=== PATIENT | female | born 1950 | race Caucasian/White ===

== ENCOUNTER 2016-06-06 10:41 | Outpatient (CLI) | payer MEDICARE, OTHER | END 2016-06-06 10:42 | disposition home or self-care (01) | DX: I10 Essential (primary) hypertension (principal); C85.90 Non-Hodgkin lymphoma, unspecified, unspecified site; M85.80 Other specified disorders of bone density and structure, unspecified site; Z79.899 Other long term (current) drug therapy ==

== ENCOUNTER 2016-06-22 12:49 | Outpatient (CLI) | payer MEDICARE, OTHER | END 2016-06-22 12:50 | disposition home or self-care (01) | DX: M85.88 Other specified disorders of bone density and structure, other site (principal) ==

== ENCOUNTER 2017-04-16 08:00 | Outpatient (CLI) | payer MEDICARE, OTHER | END 2017-04-16 08:01 | disposition home or self-care (01) | LOC: LAB.R 08:00 | PROVIDERS: ATTEND Physician Assistant Medical | DX: R30.0 Dysuria (principal) | CPT/HCPCS: 87086 ==

== ENCOUNTER 2017-04-16 14:43 | Outpatient (CLI) | payer MEDICARE, OTHER ==
[2017-04-16 18:59] LABS: BASOPHILS % (AUTO) 0.3 %; EOSINOPHILS # (AUTO) 0.4 10^3/uL (0.0-0.7); EOSINOPHILS % (AUTO) 2.5 %; HCT - HEMATOCRIT 40.5 % (37.0-47.0); HGB - HEMOGLOBIN 13.4 g/dL (12.0-16.0); LYMPHOCYTES # (AUTO) 3.6 10^3/uL (1.5-3.5); LYMPHOCYTES % (AUTO) 23.4 %; MEAN CORPUSCULAR HEMOGLOBIN 29.1 pg (27.0-31.0); MEAN PLATELET VOLUME 9.6 fL (7.9-10.8); MONOCYTES # (AUTO) 1.1 10^3/uL (0.0-1.0); MONOCYTES % (AUTO) 7.5 %; NEUTROPHILS # (AUTO) 10.1 10^3/uL (1.5-6.6); NEUTROPHILS % (AUTO) 66.3 %; RED CELL DISTRIBUTION WIDTH 13.8 % (12.0-15.0); UNCORRECTED WHITE BLOOD COUNT 15.2 x10^3/uL; WHITE BLOOD COUNT 15.2 x10^3/uL (4.8-10.8)
[2017-04-16 19:16] LABS: ALBUMIN/GLOBULIN RATIO 1.9 (1.0-2.2); BILIRUBIN,TOTAL 0.9 mg/dL (0.2-1.0); CALCIUM 10.1 mg/dL (8.5-10.3); CREATININE 0.8 mg/dL (0.4-1.0); TOTAL PROTEIN 6.7 g/dL (6.7-8.2)
== END 2017-04-16 14:44 | disposition home or self-care (01) ==
LOC: LAB.WCP 14:43
PROVIDERS: ATTEND Physician Assistant Medical
DX: R30.0 Dysuria (principal); Z51.81 Encounter for therapeutic drug level monitoring; Z79.899 Other long term (current) drug therapy
CPT/HCPCS: 36415; 80053; 85025; 87086

== ENCOUNTER 2017-04-19 11:58 | Outpatient (CLI) | payer MEDICARE, OTHER ==
[2017-04-19 19:05] LABS: BASOPHILS # (AUTO) 0.1 10^3/uL (0.0-0.1); BASOPHILS % (AUTO) 0.9 %; EOSINOPHILS # (AUTO) 0.4 10^3/uL (0.0-0.7); EOSINOPHILS % (AUTO) 5.2 %; HCT - HEMATOCRIT 41.4 % (37.0-47.0); HGB - HEMOGLOBIN 13.6 g/dL (12.0-16.0); LYMPHOCYTES # (AUTO) 1.6 10^3/uL (1.5-3.5); MEAN CORPUSCULAR HGB CONC 32.8 g/dL (32.0-36.0); MEAN CORPUSCULAR VOLUME 88.5 fL (81.0-99.0); MEAN PLATELET VOLUME 9.8 fL (7.9-10.8); MONOCYTES # (AUTO) 0.7 10^3/uL (0.0-1.0); MONOCYTES % (AUTO) 8.4 %; NEUTROPHILS # (AUTO) 5.3 10^3/uL (1.5-6.6); NEUTROPHILS % (AUTO) 65.5 %; NUCLEATED RED BLOOD CELLS AUTO 0.1 /100WBC; RED BLOOD COUNT 4.68 10^6/uL (4.20-5.40); UNCORRECTED WHITE BLOOD COUNT 8.1 x10^3/uL; WHITE BLOOD COUNT 8.1 x10^3/uL (4.8-10.8)
== END 2017-04-19 11:59 | disposition home or self-care (01) ==
LOC: LAB.WCP 11:58
PROVIDERS: ATTEND Physician Assistant Medical
DX: D72.829 Elevated white blood cell count, unspecified (principal)
CPT/HCPCS: 36415; 85025

== ENCOUNTER 2017-12-06 13:16 | Outpatient (CLI) | payer MEDICARE, OTHER ==
--- NOTE | 2017-12-09 15:24 | Mammography Report ---
Procedure Date: 12/06/2017 Accession Number: [id number] / [id number] Procedure: BIANKA - Screening Mammo Dig Bilat CPT Code: FULL RESULT: EXAM: Screening Mammo Dig Bilat DATE: 12/06/2017 1:39 PM CLINICAL HISTORY: 67-year-old with family history of breast cancer for screening, history of benign left excisional biopsy TECHNIQUE: Bilateral CC and MLO views were obtained. COMPARISON: 08/31/2009 FINDINGS: The breasts demonstrate diffuse fatty replacement bilaterally. Punctate, typically benign calcifications are present. No suspicious masses, clustered microcalcifications, or regions of architectural distortion are identified. IMPRESSION: Benign findings RECOMMENDATION: Routine annual screening unless otherwise clinically indicated. BIRADS CATEGORY 2: Benign findings STANDARD QUALIFYING STATEMENTS: 1. This examination was reviewed with the aid of Computer-Aided Detection (CAD). 2. A negative or benign imaging report should not delay biopsy if clinically suspicious findings are present. Consider surgical consultation if warrented. More than 5% of cancers are not identified by imaging. 3. Dense breasts may obscure an underlying neoplasm.
== END 2017-12-06 13:17 | disposition home or self-care (01) ==
LOC: DI 13:16
PROVIDERS: ATTEND Physician Assistant Medical
DX: Z12.31 Encounter for screening mammogram for malignant neoplasm of breast (principal); Z80.3 Family history of malignant neoplasm of breast
CPT/HCPCS: 77067

== ENCOUNTER 2018-02-28 15:39 | Outpatient (CLI) | payer OTHER, MEDICARE | END 2018-02-28 15:40 | disposition critical access hospital (66) | LOC: EMS 15:39 | PROVIDERS: ATTEND Surgery | DX: R07.81 Pleurodynia (principal); M25.562 Pain in left knee; V28.4XXA Motorcycle driver injured in noncollision transport accident in traffic accident, initial encounter; Y92.410 Unspecified street and highway as the place of occurrence of the external cause | CPT/HCPCS: A0425; A0429 ==

== ENCOUNTER 2018-02-28 15:49 | Emergency (ER) | payer OTHER, MEDICARE ==
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
[2018-02-28] MEDS ORDERED: MORPHINE 10 MG/ML VIAL IM STA (18:20)
[2018-02-28] MEDS ORDERED: KETOROLAC 60 MG/2 ML VIAL IM STA (18:20)
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
[2018-02-28] MEDS ORDERED: oxyCODONE 5 MG TABLET PO STA (20:07)
[2018-02-28 20:18] VITALS: BP 149/76
== END 2018-02-28 20:26 | disposition home or self-care (01) ==
LOC: ED 15:49
DX: I10 Essential (primary) hypertension (principal); V29.9XXA Motorcycle rider (driver) (passenger) injured in unspecified traffic accident, initial encounter
CPT/HCPCS: 71101; 71250; 96372; 99283; A9270

== ENCOUNTER 2018-03-22 11:54 | Outpatient (CLI) | payer MEDICARE, OTHER ==
--- NOTE | 2018-03-22 19:33 | Ultrasound Report ---
Reason: ABDOMINAL PAIN,RIGHT UPPER QUADRANT Procedure Date: 03/22/2018 Accession Number: [id number] / [id number] Procedure: US - Abdomen Complete CPT Code: FULL RESULT: EXAM: ABDOMEN ULTRASOUND EXAM DATE: 03/22/2018 12:43 PM. CLINICAL HISTORY: ABDOMINAL PAIN,RIGHT UPPER QUADRANT. COMPARISON: None. TECHNIQUE: Real-time scanning was performed with static images obtained. FINDINGS: Liver: Normal in size , echogenic 16.7 cm. Main portal vein flow: Hepatopetal. Gallbladder: Normal. No stones, wall thickening, or sonographic Cortes's sign. Biliary System: Common bile duct measures 3.2 mm. No intrahepatic or extrahepatic ductal dilatation. Pancreas: Visualized portion is unremarkable. Kidneys: Right: 11.2 cm longitudinally. Normal. No contour-deforming mass, stones, or hydronephrosis. Left: 10.8 cm longitudinally. Normal. No contour-deforming mass, stones, or hydronephrosis. Spleen: 9.5 cm. Normal in size and echotexture. Aorta and Inferior Vena Cava: Unremarkable. Other: None. IMPRESSION: 1. Fatty infiltrated normal sized liver without focal mass. 2. No gallstones RADIA
== END 2018-03-22 11:55 | disposition home or self-care (01) ==
LOC: DI 11:54
PROVIDERS: ATTEND Family Medicine
DX: R10.11 Right upper quadrant pain (principal); K76.0 Fatty (change of) liver, not elsewhere classified
CPT/HCPCS: 76700

== ENCOUNTER 2018-04-08 11:19 | Outpatient (CLI) | payer MEDICARE, OTHER ==
[2018-04-08] MEDS ORDERED: IOPAMIDOL-300 100 ML VIAL ONE (11:27)
[2018-04-08 11:51] LABS: ALBUMIN 4.5 g/dL (3.2-5.5); ALBUMIN/GLOBULIN RATIO 1.8 (1.0-2.2); CALCIUM 9.5 mg/dL (8.5-10.3); CREATININE 0.7 mg/dL (0.4-1.0)
[2018-04-08] MEDS ORDERED: IOPAMIDOL-300 100 ML VIAL IVP ONE (12:38)
--- NOTE | 2018-04-09 12:09 | CT Report ---
Reason: PULMONARY NODULE Procedure Date: 04/08/2018 Accession Number: [id number] / [id number] Procedure: CT - Chest W/ CPT Code: FULL RESULT: EXAM: CT CHEST EXAM DATE: 04/08/2018 12:33 PM. CLINICAL HISTORY: Pulmonary nodule. For follow-up. COMPARISONS: 02/28/2018. TECHNIQUE: Routine helical CT imaging was performed through the chest. IV contrast: 80 mL Isovue 300. Reconstructions: Coronal and sagittal. In accordance with CT protocol optimization, one or more of the following dose reduction techniques were utilized for this exam: automated exposure control, adjustment of mA and/or KV based on patient size, or use of iterative reconstructive technique. FINDINGS: Lungs/Pleura: Semisolid right apical nodule stable measuring 1.4 x 1.4 cm axial by 1.2 cm vertical, series 4:10. Tiny left apical nodule series 4 image 12 measuring 4-5 mm likely stable allowing for slice selection differences. Small amount of nonspecific groundglass density posterior and medial right lung, for example series 4:38. 3 mm peripheral right lung nodule same image probably obscured by hypoventilatory change on the prior study. Subpleural posterior 2 mm right lung nodule 4:32. No other nodules, bronchial thickening, consolidation, or edema. Pulmonary vasculature is normal. No pericardial or pleural effusion. No pneumothorax. Mediastinum: No adenopathy or masses. The heart and great vessels are normal. Bones: Unremarkable. Included Upper Abdomen: Question tiny gallstone. Other: Lipoma left paraspinal muscle 3:58, unchanged. IMPRESSION: Stable chest CT compared with 02/28/2018 with particular reference to a semisolid right apical nodule. Other incidental findings as above. Suggest follow-up chest CT in 12 months to assess stability. RADIA
== END 2018-04-08 11:20 | disposition home or self-care (01) ==
LOC: LAB 11:19 → DI 11:20
PROVIDERS: ATTEND Physician Assistant Medical
DX: J98.4 Other disorders of lung (principal); R91.1 Solitary pulmonary nodule; I10 Essential (primary) hypertension
CPT/HCPCS: 36415; 71260; 80053; Q9967

== ENCOUNTER 2018-06-25 14:18 | Outpatient (CLI) | payer MEDICARE, OTHER ==
--- NOTE | 2018-06-26 09:33 | DEXA Report ---
Reason: BONE DISORDER Procedure Date: 06/25/2018 Accession Number: [id number] / [id number] Procedure: DEX - Dexa Spine and/or Hip CPT Code: FULL RESULT: EXAM: Dexa Spine and/or Hip DATE: 06/25/2018 2:58 PM CLINICAL HISTORY: BONE DISORDER TECHNIQUE: Dual energy x-ray absorptiometry (DXA) was performed on a [employer] System. Regions measured are the AP Spine, femoral neck, and if needed forearm. COMPARISON: 06/22/2016. In accordance with the International Society for Clinical Densitometry (ISCD) guidelines, data from previous exams may be reanalyzed using current recommendations and techniques. This is done to allow a more accurate basis for comparison with the current study. FINDINGS: The data for the lumbar spine is as follows: BMD (g/cm/cm) T-SCORE Z-SCORE REGION L1 1.138 0.1 1.0 L2 1.439 2.0 2.9 L3 1.590 3.3 4.2 L4 1.766 4.7 5.6 TOTAL 1.499 2.7 3.6 NOTE: All evaluable vertebrae are used for classification The data for the hip is as follows: BMD (g/cm/cm) T-SCORE Z-SCORE REGION Neck 0.847 -1.4 -0.2 TOTAL 1.011 0.0 1.0 NOTE: The femoral neck or total proximal femur, whichever is lowest, is used for classification. DXA RESULTS SUMMARY: Spine SCAN DATE AGE BMD CHANGE VS CHANGE VS PREVIOUS PREVIOUS % [birth year]25[birth year]2018 [age] 1.499 0.030* 2.0* 06/22/2016 [age] 1.469 * Denotes significant change at the 95% confidence level. Denotes dissimilar scan types or analysis methods. DXA RESULTS SUMMARY: Hip SCAN DATE AGE BMD CHANGE VS CHANGE VS PREVIOUS PREVIOUS % [birth year]2018 68.2 1.011 0.040* 4.1* 06[birth year]22/2016 66.2 0.971 * Denotes significant change at the 95% confidence level. Denotes dissimilar scan types or analysis methods. IMPRESSION: THE WHO CLASSIFICATION BASED ON THE INTERNATIONAL REFERENCE STANDARD IS OSTEOPENIA. THE FRACTURE RISK IS INCREASED. Please note that the osteopenia is isolated to the femoral neck. RECOMMENDATION: Patients with diagnosis of osteoporosis or osteopenia should have regular bone mineral density assessment. For those eligible for Medicare, routine testing is allowed once every 2 years. Testing frequency can be increased for patients who have rapidly progressing disease or for those who are receiving medical therapy to restore bone mass. COMMENT: World Health Organization (WHO) definitions for osteoporosis and osteopenia: NORMAL BMD: T-score at -1.0 or higher, fracture risk is low OSTEOPENIA BMD: T-score between -1.0 and -2.5, fracture risk is increased. OSTEOPOROSIS BMD: T-score at -2.5 or lower, fracture risk is high. National Osteoporosis Foundation recommends: 1. Obtain adequate dietary calcium (at least 1200 mg per day) and vitamin D (400-800 international units per day). 2. Participate, as appropriate, in regular weightbearing and muscle-strengthening exercise. 3. Avoid tobacco use and reduce alcohol and caffeine intake. 4. For more detailed information see the website at www.NOF.org.
== END 2018-06-25 14:19 | disposition home or self-care (01) ==
LOC: DI 14:18
PROVIDERS: ATTEND Physician Assistant Medical
DX: M85.89 Other specified disorders of bone density and structure, multiple sites (principal)
CPT/HCPCS: 77080

== ENCOUNTER 2018-11-03 18:45 | Emergency (ER) | payer MEDICARE, OTHER ==
--- NOTE | 2018-11-03 19:02 | ED Physician Documentation ---
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 He called her this afternoon and said that her potassium was too high and she needed to come to the emergency department. She has not had any symptoms other than a couple of days ago when she had walked across the hospital she was staggering. Her said this was the first that he had heard of that. She did not pass out. She has a history of A. fib but has not been feeling any palpitations. No history of kidney failure and no edema. She has been anemic in the past requiring transfusion. Review of Systems Cardiac: denies: Palpitations : reports: Other (No history of renal failure) Neurologic: reports: Other (Unsteadiness a couple days ago). 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 Cardiovascular: Other - Present Medications Home Medications: Ambulatory Orders Medication Instructions Recorded Confirmed Albuterol Sulfate [Proair 2 puffs INH Q4H PRN 12/12/15 01/30/16 Respiclick] Sertraline [Zoloft] 100 mg PO DAILY 12/12/15 01/30/16 Calcium Carbonate 600 mg PO BID 01/30/16 01/30/16 Cholecalciferol (Vitamin D3) 3,000 unit PO DAILY 01/30/16 01/30/16 [Vitamin D3] [place]-3/Dha/Epa/Fish Oil [[place]-3 1,000 mg PO DAILY 01/30/16 01/30/16 Fish Oil EC 1,000 mg] Atorvastatin [Lipitor] 20 mg PO QPM tablet 02/01/16 ALPRAZolam [Alprazolam] 0.25 mg PO 11/03/18 Aspirin 81 mg PO 11/03/18 Diltiazem HCl [Diltiazem 12Hr ER] 120 mg PO 11/03/18 Tolterodine Tartrate [Detrol LA] 4 mg PO 11/03/18 - Allergies Allergies/Adverse Reactions: Allergies Allergy/AdvReac Type Severity Reaction Status Date / Time adhesive tape Allergy Rash Verified 11/03/18 18:50 erythromycin base Allergy Unknown Verified 11/03/18 18:50 naproxen AdvReac Intermediate Rash Verified 11/03/18 18:50 Penicillins AdvReac Intermediate Rash Verified 11/03/18 18:50 metoclopramide HCl * AdvReac Unknown Verified 11/03/18 18:50 [From Reglan] - Social History Does the pt smoke?: No Smoking Status: Never smoker Does the pt drink ETOH?: No Does the pt have substance abuse?: No - Immunizations Immunizations are current?: Yes - POLST Patient has POLST: No PD ED PE NORMAL - Vitals Vital signs reviewed: Yes - General General: Alert and oriented X 3, No acute distress, Well developed/nourished - HEENT HEENT: Atraumatic, PERRL, EOMI, Moist mucous membranes - Cardiac Cardiac: RRR, No murmur - Respiratory Respiratory: No respiratory distress, Clear bilaterally - Abdomen Abdomen: Normal bowel sounds, Soft, No organomegaly - Derm Derm: Normal color, Warm and dry - Neuro Neuro: Alert and oriented X 3, Normal speech, Other (Patient was observed ambulating into the room without any ataxia or unsteadiness.) - Psych Psych: Normal mood, Normal affect Results - Vitals Vitals: Vital Signs - 24 hr 11/03/18 18:53 Temperature 36.8 C Heart Rate 62 Respiratory 18 Rate Blood Pressure 143/60 H O2 Saturation 95 Oxygen O2 Source Room air - Labs Labs: Laboratory Tests 11/03/18 11/03/18 19:08 19:08 WBC 9.4 RBC 4.57 Hgb 13.5 Hct 40.6 MCV 88.9 MCH 29.6 MCHC 33.3 RDW 13.3 Plt Count 290 MPV 9.5 Neut # (Auto) 6.3 Lymph # (Auto) 2.1 [place] # (Auto) 0.7 Eos # (Auto) 0.3 Baso # (Auto) 0.1 Absolute Nucleated RBC 0.01 Nucleated RBC % 0.1 Sodium 143 Potassium 3.9 Chloride 105 Carbon Dioxide 27 Anion Gap 11.0 BUN 21 H Creatinine 0.8 Estimated GFR (MDRD) 71 L Glucose 96 Calcium 9.7 Total Bilirubin 1.0 AST 17 ALT 14 Alkaline Phosphatase 74 Total Protein 6.7 Albumin 4.4 Globulin 2.3 Albumin/Globulin Ratio 1.9 Lipase 34 PD MEDICAL DECISION MAKING - ED course Complexity details: d/w patient ED course: Patient's repeat potassium here was 3.9 with normal renal function. Her potassium today may have been elevated due to hemolysis. She is not anemic with a hemoglobin of 13.2. Departure - Departure Disposition: 01 Home, Self Care Clinical Impression: Abnormal laboratory test result Condition: Good Follow-Up: VERONICA SMITH [Primary Care Provider] - doctor,your [Other] (You should contact Dr. Hoover's office tomorrow to tell them the potassium result we got here in the emergency department.) Comments: Contact Dr. Hoover tomorrow about your repeat labs here in the ER.
[2018-11-03 19:12] LABS: BASOPHILS # (AUTO) 0.1 10^3/uL (0.0-0.1); BASOPHILS % (AUTO) 0.7 %; EOSINOPHILS # (AUTO) 0.3 10^3/uL (0.0-0.7); EOSINOPHILS % (AUTO) 3.1 %; HGB - HEMOGLOBIN 13.5 g/dL (12.0-16.0); LYMPHOCYTES # (AUTO) 2.1 10^3/uL (1.5-3.5); MEAN CORPUSCULAR HEMOGLOBIN 29.6 pg (27.0-31.0); MEAN CORPUSCULAR HGB CONC 33.3 g/dL (32.0-36.0); MEAN CORPUSCULAR VOLUME 88.9 fL (81.0-99.0); MEAN PLATELET VOLUME 9.5 fL (7.9-10.8); MONOCYTES # (AUTO) 0.7 10^3/uL (0.0-1.0); NEUTROPHILS # (AUTO) 6.3 10^3/uL (1.5-6.6); NEUTROPHILS % (AUTO) 67.2 %; PLT - PLATELET COUNT 290 10^3/uL (130-450); RED BLOOD COUNT 4.57 10^6/uL (4.20-5.40); RED CELL DISTRIBUTION WIDTH 13.3 % (12.0-15.0); WHITE BLOOD COUNT 9.4 x10^3/uL (4.8-10.8)
[2018-11-03 19:24] LABS: ALBUMIN 4.4 g/dL (3.2-5.5); ALBUMIN/GLOBULIN RATIO 1.9 (1.0-2.2); CALCIUM 9.7 mg/dL (8.5-10.3); CREATININE 0.8 mg/dL (0.4-1.0); TOTAL PROTEIN 6.7 g/dL (6.7-8.2)
[2018-11-03 19:57] VITALS: BP 146/67
== END 2018-11-03 20:16 | disposition home or self-care (01) ==
LOC: ED 18:45
DX: R79.9 Abnormal finding of blood chemistry, unspecified (principal); C85.90 Non-Hodgkin lymphoma, unspecified, unspecified site; Z79.899 Other long term (current) drug therapy; I10 Essential (primary) hypertension
CPT/HCPCS: 36415; 80053; 83690; 85025; 93005; 99283

== ENCOUNTER 2019-03-12 08:00 | Outpatient (CLI) | payer MEDICARE, OTHER ==
[2019-03-12 19:08] LABS: BASOPHILS # (AUTO) 0.1 10^3/uL (0.0-0.1); BASOPHILS % (AUTO) 0.8 %; EOSINOPHILS # (AUTO) 0.3 10^3/uL (0.0-0.7); EOSINOPHILS % (AUTO) 4.5 %; HGB - HEMOGLOBIN 14.1 g/dL (12.0-16.0); LYMPHOCYTES # (AUTO) 0.9 10^3/uL (1.5-3.5); LYMPHOCYTES % (AUTO) 11.8 %; MEAN CORPUSCULAR HEMOGLOBIN 30.3 pg (27.0-31.0); MEAN CORPUSCULAR HGB CONC 31.8 g/dL (32.0-36.0); MEAN CORPUSCULAR VOLUME 95.3 fL (81.0-99.0); MEAN PLATELET VOLUME 11.9 fL (7.9-10.8); MONOCYTES # (AUTO) 0.6 10^3/uL (0.0-1.0); MONOCYTES % (AUTO) 8.8 %; NEUTROPHILS # (AUTO) 5.4 10^3/uL (1.5-6.6); NEUTROPHILS % (AUTO) 73.8 %; PLT - PLATELET COUNT 304 10^3/uL (130-450); RED BLOOD COUNT 4.66 10^6/uL (4.20-5.40); RED CELL DISTRIBUTION WIDTH 12.8 % (12.0-15.0); WHITE BLOOD COUNT 7.3 x10^3/uL (4.8-10.8)
[2019-03-12 19:33] LABS: ALBUMIN 4.6 g/dL (3.2-5.5); ALBUMIN/GLOBULIN RATIO 2.2 (1.0-2.2); ALKALINE PHOSPHATASE 79 IU/L (42-121); ALT ALANINE AMINOTRANSFERASE 14 IU/L (10-60); AST ASPARTATE AMINOTRANSFERASE 18 IU/L (10-42); BILIRUBIN,TOTAL 1.5 mg/dL (0.2-1.0); BUN - BLOOD UREA NITROGEN 17 mg/dL (6-20); CALCIUM 9.4 mg/dL (8.5-10.3); CARBON DIOXIDE - CO2 32 mmol/L (21-32); CHLORIDE 103 mmol/L (101-111); CHOL/HDL RATIO 2.3 (<4.4); CHOLESTEROL 160 mg/dL; CREATININE 0.7 mg/dL (0.4-1.0); GFR - MDRD 83 (>89); GLUCOSE 93 mg/dL (70-100); HDL CHOLESTEROL 71 mg/dL; LDL CHOLESTEROL,CALCULATED 68 mg/dL; SODIUM 144 mmol/L (135-145); TOTAL PROTEIN 6.7 g/dL (6.7-8.2); VLDL CHOLESTEROL 21 mg/dL
== END 2019-03-12 23:59 ==
LOC: LAB.WCP 08:00
PROVIDERS: ATTEND Physician Assistant Medical
DX: I10 Essential (primary) hypertension (principal)
CPT/HCPCS: 36415; 80053; 80061; 83721; 85025

== ENCOUNTER 2019-03-25 13:01 | Outpatient (CLI) | payer MEDICARE, OTHER ==
--- NOTE | 2019-03-25 18:14 | CT Report ---
Reason: PULMONARY NODULE Procedure Date: 03/25/2019 Accession Number: [id number] / [id number] Procedure: CT - CHEST WO CPT Code: FULL RESULT: EXAM: CT CHEST EXAM DATE: 03/25/2019 01:28 PM. CLINICAL HISTORY: PULMONARY NODULE follow-up. COMPARISONS: CHEST W/ 04/08/2018 12:25 PM CHEST W/O 02/28/2018 6:50 PM. TECHNIQUE: Routine helical CT imaging was performed through the chest. IV contrast: None. Reconstructions: Coronal and sagittal. In accordance with CT protocol optimization, one or more of the following dose reduction techniques were utilized for this exam: automated exposure control, adjustment of mA and/or KV based on patient size, or use of iterative reconstructive technique. FINDINGS: Lungs/Pleura: Semisolid right apical nodule maximum dimension 1.5 cm unchanged since 04/08/2018. 4-5 mm left apical groundglass nodule also stable. Few scattered groundglass opacities bilaterally, most marked posterior medial right lung, i.e. 4/124 and 4/176 also grossly stable. Peripheral right lung calcified granuloma 4/165 unchanged. No significant new nodules seen. No pleural effusion or pneumothorax. Mediastinum: No pathologic mediastinal adenopathy. Small nonspecific mediastinal lymph nodes are stable. Calcification in the aorta and branch great vessels. Coronary artery calcification. Bones: Multiple old left rib fractures and scattered degenerative changes in the spine as before. Other: Left paraspinal lipoma stable IMPRESSION: Stable chest CT compared with 04/08/2018 with particular reference to a right apical semisolid nodule. Other incidental findings as above. Suggest one additional follow-up chest CT in 12 months. RADIA
--- NOTE | 2019-03-26 04:46 | MRI Report ---
Reason: DYSPHAGIA, PULMONARY NODULE Procedure Date: 03/25/2019 Accession Number: [id number] / [id number] Procedure: MRI - Brain W/O CPT Code: FULL RESULT: EXAM: MRI BRAIN WITHOUT CONTRAST EXAM DATE: 03/25/2019 02:57 PM CLINICAL HISTORY: Dysphagia, pulmonary nodule. History of lymphoma. COMPARISON: BRAIN W/WO 01/20/2015 4:02 PM. TECHNIQUE: Multiplanar, multisequence T1-weighted and fluid-sensitive MR sequences of the brain were performed. Sequences optimized for routine evaluation. Other: None. IV Contrast: None. FINDINGS: An axial T2 ANALILIA sequence was not acquired. Brain Volume: There is mild generalized cerebral volume loss, in keeping with the patient's age. Parenchyma/Dura: No mass, acute infarct or hemorrhage. Moderate scattered areas of T2 hyperintensity are again seen in the subcortical, deep, and periventricular white matter of the bilateral cerebral hemispheres, stable compared to the prior brain MRI and typically reflect chronic microvascular ischemic changes in a patient of this age. Ventricles/Cisterns: No hydrocephalus. No abnormal extra-axial fluid collection or hemorrhage. Orbits: Symmetric and unremarkable. Sella Turcica: The pituitary gland, cavernous sinuses, suprasellar cistern and optic chiasm are unremarkable. IAC: Symmetric and unremarkable. Vasculature: Normal signal flow void is seen in the major arterial structures at the skull base. Sinuses: No acute appearing sinus disease. Bones: No focal pathologic appearing marrow signal changes. IMPRESSION: 1. No acute infarct, intracranial mass lesion, or hemorrhage. 2. Stable mild to moderate senescent changes compared to the brain MRI from 01/20/2015. RADIA
== END 2019-03-25 13:02 | disposition home or self-care (01) ==
LOC: DI 13:01
PROVIDERS: ATTEND Physician Assistant Medical
DX: R13.10 Dysphagia, unspecified (principal); R91.8 Other nonspecific abnormal finding of lung field
CPT/HCPCS: 70551; 71250

== ENCOUNTER 2019-12-01 08:00 | Outpatient (CLI) | payer MEDICARE, OTHER ==
[2019-12-01 18:33] LABS: CHOLESTEROL 187 mg/dL; HDL CHOLESTEROL 94 mg/dL; LDL CHOLESTEROL,CALCULATED 69 mg/dL; LDL/HDL RATIO 0.7 (<4.4); VLDL CHOLESTEROL 24 mg/dL
== END 2019-12-01 23:59 | disposition home or self-care (01) ==
LOC: LAB.WCP 08:00
PROVIDERS: ATTEND Nurse Practitioner
DX: I65.23 Occlusion and stenosis of bilateral carotid arteries (principal)
CPT/HCPCS: 36415; 80061; 83721

== ENCOUNTER 2020-08-18 11:38 | Emergency (ER) | payer MEDICARE, OTHER ==
[2020-08-18 11:49] VITALS: BP 155/85
--- NOTE | 2020-08-18 11:50 | ED Physician Documentation ---
PD HPI OPHTHO - Stated complaint Stated Complaint: RT EYE PX - History obtained from History obtained from: Patient - Additional information Additional information: She noted a bloody area in the white of her eye just prior to arrival. It is relatively painless. Vision is not affected. She has no bleeding diathesis or anticoagulation other than she does take a baby aspirin a day. Review of Systems Constitutional: denies: Fever, Chills Eyes: reports: Irritation. 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 Cardiovascular: Other - Present Medications Home Medications: Ambulatory Orders Medication Instructions Recorded Confirmed Albuterol Sulfate [Proair 2 puffs INH Q4H PRN 12/12/15 01/30/16 Respiclick] Sertraline [Zoloft] 100 mg PO DAILY 12/12/15 01/30/16 Calcium Carbonate 600 mg PO BID 01/30/16 01/30/16 Cholecalciferol (Vitamin D3) 3,000 unit PO DAILY 01/30/16 01/30/16 [Vitamin D3] Rosamond-3/Dha/Epa/Fish Oil [Rosamond-3 1,000 mg PO DAILY 01/30/16 01/30/16 Fish Oil EC 1,000 mg] Atorvastatin [Lipitor] 20 mg PO QPM tablet 02/01/16 ALPRAZolam [Alprazolam] 0.25 mg PO 11/03/18 Aspirin 81 mg PO 11/03/18 Diltiazem HCl [Diltiazem 12Hr ER] 120 mg PO 11/03/18 Tolterodine Tartrate [Detrol LA] 4 mg PO 11/03/18 - Allergies Allergies/Adverse Reactions: Allergies Allergy/AdvReac Type Severity Reaction Status Date / Time adhesive tape Allergy Rash Verified 08/18/20 11:50 erythromycin base Allergy Unknown Verified 08/18/20 11:50 naproxen AdvReac Intermediate Rash Verified 08/18/20 11:50 Penicillins AdvReac Intermediate Rash Verified 08/18/20 11:50 metoclopramide HCl * AdvReac Unknown Verified 08/18/20 11:50 [From Reglan] - Social History Does the pt smoke?: No Smoking Status: Never smoker Does the pt drink ETOH?: No Does the pt have substance abuse?: No - Immunizations Immunizations are current?: Yes - POLST Patient has POLST: No PD ED PE NORMAL - Vitals Vital signs reviewed: Yes - General General: Alert and oriented X 3, No acute distress - HEENT HEENT: PERRL, EOMI, Other (Medial subconjunctival hematoma of the right eye.) - Neck Neck: Supple, no meningeal sign, No bony TTP - Neuro Neuro: Alert and oriented X 3, Normal speech Results - Vitals Vitals: Vital Signs - 24 hr 08/18/20 11:47 Temperature 36 C L Heart Rate 65 Respiratory 18 Rate Blood Pressure 155/85 H O2 Saturation 96 Oxygen O2 Source Room air Departure - Departure Disposition: 01 Home, Self Care Clinical Impression: Subconjunctival hemorrhage of right eye Condition: Good Record reviewed to determine appropriate education?: Yes Instructions: Subconjunctival Hemorrhage Comments: Return for new or worsening symptoms. Otherwise you can follow-up with your eye doctor for a second opinion. If desired.
== END 2020-08-18 12:03 | disposition home or self-care (01) ==
LOC: ED 11:38
DX: H11.31 Conjunctival hemorrhage, right eye (principal); I10 Essential (primary) hypertension
CPT/HCPCS: 99281; 99283

== ENCOUNTER 2020-11-01 14:34 | Outpatient (CLI) | payer MEDICARE, OTHER ==
[2020-11-01 18:10] LABS: BASOPHILS # (AUTO) 0.1 10^3/uL (0.0-0.1); EOSINOPHILS # (AUTO) 0.3 10^3/uL (0.0-0.7); EOSINOPHILS % (AUTO) 3.8 %; HCT - HEMATOCRIT 43.4 % (37.0-47.0); HGB - HEMOGLOBIN 14.2 g/dL (12.0-16.0); LYMPHOCYTES % (AUTO) 27.1 %; MEAN CORPUSCULAR HEMOGLOBIN 30.7 pg (27.0-31.0); MEAN CORPUSCULAR HGB CONC 32.7 g/dL (32.0-36.0); MEAN CORPUSCULAR VOLUME 93.7 fL (81.0-99.0); MEAN PLATELET VOLUME 11.5 fL (7.9-10.8); MONOCYTES # (AUTO) 0.7 10^3/uL (0.0-1.0); MONOCYTES % (AUTO) 9.4 %; NEUTROPHILS # (AUTO) 4.3 10^3/uL (1.5-6.6); NEUTROPHILS % (AUTO) 58.4 %; PLT - PLATELET COUNT 368 10^3/uL (130-450); RED BLOOD COUNT 4.63 10^6/uL (4.20-5.40); WHITE BLOOD COUNT 7.4 x10^3/uL (4.8-10.8)
[2020-11-01 18:59] LABS: ALBUMIN 4.7 g/dL (3.2-5.5); ALBUMIN/GLOBULIN RATIO 2.2 (1.0-2.2); ALKALINE PHOSPHATASE 66 IU/L (42-121); ALT ALANINE AMINOTRANSFERASE 14 IU/L (10-60); AST ASPARTATE AMINOTRANSFERASE 17 IU/L (10-42); BUN - BLOOD UREA NITROGEN 15 mg/dL (6-20); CALCIUM 9.5 mg/dL (8.5-10.3); CARBON DIOXIDE - CO2 31 mmol/L (21-32); CHLORIDE 102 mmol/L (101-111); CHOL/HDL RATIO 2.3 (<4.4); CHOLESTEROL 192 mg/dL; CREATININE 0.8 mg/dL (0.4-1.0); GFR - MDRD 71 (>89); GLUCOSE 92 mg/dL (70-100); HDL CHOLESTEROL 83 mg/dL; LDL CHOLESTEROL,CALCULATED 81 mg/dL; POTASSIUM 4.1 mmol/L (3.5-5.0); SODIUM 139 mmol/L (135-145); TOTAL PROTEIN 6.8 g/dL (6.7-8.2); TRIGLYCERIDES 139 mg/dL; VLDL CHOLESTEROL 28 mg/dL
== END 2020-11-01 23:59 | disposition home or self-care (01) ==
LOC: LAB.WCP 14:34
PROVIDERS: ATTEND Physician Assistant Medical
DX: I10 Essential (primary) hypertension (principal)
CPT/HCPCS: 36415; 80053; 80061; 83721; 85025

== ENCOUNTER 2020-12-13 12:57 | Outpatient (CLI) | payer MEDICARE, OTHER ==
--- NOTE | 2020-12-14 11:57 | Mammography Report ---
BILATERAL DIGITAL SCREENING MAMMOGRAM 3D/2D: 12/13/2020 CLINICAL: Routine screening. Comparison is made to exams dated: 12/06/2017 mammogram and 08/31/2009 mammogram - [facility]. The tissue of both breasts is predominantly fatty. No significant masses, calcifications, or other findings are seen in either breast. There has been no significant interval change. IMPRESSION: NEGATIVE There is no mammographic evidence of malignancy. A 1 year screening mammogram is recommended. This exam was interpreted at Station ID: [id number]. NOTE: For mammograms, a report in lay terms will be sent to the patient. Approximately 15% of breast malignancies will not be visualized mammographically. In the management of a palpable breast mass, a negative mammogram must not discourage biopsy of a clinically suspicious lesion. Electronically Signed By: John Shearer M.D. [email or web address]:12/13/2020 15:03:03 ACR BI-RADS Category 1: Negative 3341F PARENCHYMAL PATTERN: (F) - The breast(s) demonstrate(s) diffuse fatty replacement. BI-RADS CATEGORY: (1) - 1 RECOMMENDATION: (ANNUAL) - Recommend routine annual screening mammography. [id number] 1 year screening LATERALITY: (B)
== END 2020-12-13 12:58 | disposition home or self-care (01) ==
LOC: DI 12:57
DX: Z12.31 Encounter for screening mammogram for malignant neoplasm of breast (principal)

== ENCOUNTER 2020-12-13 12:58 | Outpatient (CLI) | payer MEDICARE, OTHER ==
--- NOTE | 2020-12-13 18:34 | CT Report ---
PROCEDURE: CHEST WO INDICATIONS: PULMONARY NODULE TECHNIQUE: Noncontrast images were acquired from the pulmonary apices to the posterior costophrenic angles. Mul tiplanar MIP reformats were then acquired. For radiation dose reduction, the following was used: au tomated exposure control, adjustment of mA and/or kV according to patient size. COMPARISON: Chest CT without contrast, 03/25/2019. Chest CT with contrast, 04/08/2018. FINDINGS: Image quality: Excellent. Lungs and pleura: There is a 1.4 x 1.6 cm groundglass nodule in the posterior right apex, unchanged in size compared to 04/08/2018. A 0.9 cm groundglass nodule is seen in the posterior left upper lobe, also unchanged in size but increased in density and more conspicuous. No acute air space opacities. No pleural effusions or pneumothorax. Central and peripheral airways are patent and normal in calib er. Mediastinum: Heart size is normal. There is severe coronary artery calcification. No pericardial ef fusion. No mediastinal adenopathy by size criteria. Thoracic aorta and central pulmonary arteries a re normal in size. Esophagus is normal in caliber. No hiatal hernia. Bones and chest wall: No suspicious bony lesions. No vertebral body compression fractures. No axil leonor or supraclavicular adenopathy by size criteria. The thyroid is normal in size and there are no incidental findings. There is a 2.0 x 3.0 cm lipoma in the left paraspinous muscle at the level of T1 1, unchanged. Abdomen: There is a 2.1 cm low-density nodule in spleen, which has increased in size (previously 0.9 cm on 03/25/2019). IMPRESSION: 1. Stable groundglass nodule in the right upper lobe since 04/10/2018. 2. A 0.9 cm nodule in the left upper lobe. Although 8 appears unchanged in size, it has increased in density. Continued follow-up is recommended. A follow-up CT is suggested in 12months. 3. A 2.1 cm low dense nodule in spleen. This nodule has increased in size since last exam. An abdomin al ultrasound is suggested as the initial follow-up exam. 4. Severe coronary artery calcification. 5. Stable 2 x 3 cm lipoma in the left paraspinous muscle. Fleischner Society criteria for SUB-SOLID lung nodule followup. Solitary pure ground-glass nodules 5 mm or less No followup needed. >5 mm 3 mo follow-up CT to confirm persistence. Then annual CT for 3 years. Part-solid nodules 3 mo follow-up CT to confirm persistence. If persistent with solid component <5 mm, annual CT for at least 3 years. If solid component is 5 mm or more, biopsy or surgical resection . Consider PET-CT for lesions > 10 mm. Multiple sub-solid nodules Pure ground glass nodules 5 mm or less Followup CT at 2 and 4 years. Pure ground glass nodules >5 mm without dominant lesion. [address] to confirm persistenc e, then annual followup CT for at least 3 years. Dominant nodule(s) with part-solid or solid component. [address] to confirm persistence. If persistent, consider biopsy or surgical resection, juice if lesions have >5 mm solid component. Reviewed by: Nayeli Dent MD on 12/13/2020 6:33 PM PDT Approved by: Nayeli Dent MD on 12/13/2020 6:33 PM PDT Station ID: [id number]
--- NOTE | 2020-12-14 10:59 | Ultrasound Report ---
PROCEDURE: Head or Neck Soft Tissue INDICATIONS: ENLARGED THYROID TECHNIQUE: Real-time scanning was performed of the thyroid gland, with image documentation. COMPARISON: 06/20/2007, CT of neck soft tissue dated 10/31/2007, and MR neck angiogram dated 01/30/2015 . FINDINGS: Right: Thyroid lobe measures 4.2 x 1.5 x 2 cm, and is homogeneous in echotexture. Left: Thyroid lobe measures 4.3 x 1.7 x 1.8 cm, and is homogenous in echotexture. Isthmus: 2.5 mm thick. Nodule number: One Location: Mid pole of right thyroid lobe Size: 1.2 x 1 x 1.2 cm on the current study compared to 9 x 9 x 9 MM on previous study. Composition: Solid Echogenicity: Hypoechoic Shape: wider than tall. Margins: Irregular and lobulated Echogenic foci: None Total points: 6 ACR TI-RADS category: 4, moderately suspicious. Nodule number: Two Location: Lower pole of left thyroid lobe Size: 0.4 cm. Composition: Spongiform Echogenicity: Hypoechoic Shape: wider than tall. Margins: Smooth Echogenic foci: None Total points: 3 ACR TI-RADS category: 3, Mildly suspicious. IMPRESSION: 1. Interval slight increase in size of patient's known right mid thyroid nodule which is moderately s uspicious. Currently measures up to 1.2 cm in size. Continued annual sonographic follow-up is recomme nded. 2. Interval development of a tiny mildly suspicious left thyroid nodule as above, suggest ultrasound follow-up. ACR TI-RADS definitions and recommendations: TI-RADS 1 (benign): 0 points. FNA not needed. TI-RADS 2 (not suspicious): 2 points. FNA not needed. TI-RADS 3 (mildly suspicious): 3 points. ? FNA if 2.5 cm or larger, follow up if 1.5 cm or larger (at 1, 3, and 5 years). TI-RADS 4 (moderately suspicious): 4-6 points. ? FNA if 1.5 cm or larger, follow up if 1 cm or larger (at 1, 2, 3, and 5 years). TI-RADS 5 (highly suspicious): 7 points or more. ? FNA if 1 cm or larger, follow up if 0.5 cm or larger (every year for 5 years). Reviewed by: Felix Riley MD on 12/14/2020 10:58 AM PDT Approved by: Felix Riley MD on 12/14/2020 10:58 AM PDT Station ID: [id number]
== END 2020-12-13 12:59 | disposition home or self-care (01) ==
LOC: DI 12:58
PROVIDERS: ATTEND Physician Assistant Medical
DX: J98.4 Other disorders of lung (principal); R91.8 Other nonspecific abnormal finding of lung field; D73.89 Other diseases of spleen; E04.1 Nontoxic single thyroid nodule; D17.9 Benign lipomatous neoplasm, unspecified

== ENCOUNTER 2022-06-09 14:57 | Emergency (ER) | payer MEDICARE, OTHER ==
[2022-06-09 15:05] VITALS: BP 147/74
--- NOTE | 2022-06-09 15:09 | ED Physician Documentation ---
PD HPI HEAD INJURY - Stated complaint Stated Complaint: FALL,HEAD INJ - Chief complaint Chief Complaint: Trauma Hd/Nk - History obtained from History obtained from: Patient - History of Present Illness Mechanism of head injury: Blow (The patient states she stood up to 6 start walking forward and inadvertently struck her head on the corner of a piece of metal. She states it was a forceful impact. She received a laceration that bled briskly. [place] to nausea and slightly lightheaded.) Timing - onset: Today Location of injury: Right Associated symptoms: AMS (lightheaded), Nausea / vomiting. No: LOC, Neck pain, Paresthesias Contributing factors: No: Anticoagulated Similar symptoms before: Has not had sx before Review of Systems Eyes: denies: Loss of vision, Decreased vision GI: reports: Nausea. denies: Vomiting Skin: reports: Laceration (s) Neurologic: reports: Headache. 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 Cardiovascular: Other - Present Medications Home Medications: Ambulatory Orders Medication Instructions Recorded Confirmed Albuterol Sulfate [Proair 2 puffs INH Q4H PRN 12/12/15 01/30/16 Respiclick] Sertraline [Zoloft] 100 mg PO DAILY 12/12/15 01/30/16 Calcium Carbonate 600 mg PO BID 01/30/16 01/30/16 Cholecalciferol (Vitamin D3) 3,000 unit PO DAILY 01/30/16 01/30/16 [Vitamin D3] [place]illion-3/Dha/Epa/Fish Oil [[place]illion-3 1,000 mg PO DAILY 01/30/16 01/30/16 Fish Oil EC 1,000 mg] Atorvastatin [Lipitor] 20 mg PO QPM tablet 02/01/16 ALPRAZolam [Alprazolam] 0.25 mg PO 11/03/18 Aspirin 81 mg PO 11/03/18 Diltiazem HCl [Diltiazem 12Hr ER] 120 mg PO 11/03/18 Tolterodine Tartrate [Detrol LA] 4 mg PO 11/03/18 - Allergies Allergies/Adverse Reactions: Allergies Allergy/AdvReac Type Severity Reaction Status Date / Time adhesive tape Allergy Rash Verified 08/18/20 11:50 erythromycin base Allergy Unknown Verified 08/18/20 11:50 naproxen AdvReac Intermediate Rash Verified 08/18/20 11:50 Penicillins AdvReac Intermediate Rash Verified 08/18/20 11:50 metoclopramide HCl * AdvReac Unknown Verified 08/18/20 11:50 [From Reglan] - Social History Does the pt smoke?: No Smoking Status: Never smoker Does the pt drink ETOH?: No Does the pt have substance abuse?: No - Immunizations Immunizations are current?: Yes - POLST Patient has POLST: No PD ED PE NORMAL - Vitals Vital signs reviewed: Yes - General General: Alert and oriented X 3, No acute distress, Well developed/nourished - HEENT HEENT: PERRL, EOMI, Other (Right parietal scalp with 3 cm laceration through to the fatty tissue with mild bleeding until cleansed and then brisker bleeding that is controlled with fingertip pressure.) - Neck Neck: Supple, no meningeal sign, No bony TTP - Derm Derm: Normal color, Warm and dry - Neuro Neuro: Alert and oriented X 3, 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 When cleansed, there did start small vascular spurting of blood, controlled with fingertip pressure on spot until sutures placed.), Clean Anesthesia: Lidocaine 1% with epi Wound preparation: Irrigated copiously NS, Wound explored, To the base Skin layer closure: Nylon, Running, Size #-0 - enter number (4), Sutures - enter # (7) Other: Patient tolerated well, No complications, Neurovascular intact, Tetanus UTD PD Medical Decision Making - ED course Complexity details: reviewed results, considered differential, d/w patient ED course: The patient was having some headache and nausea and feeling a bit lightheaded. This was after a striking her head. It was not a high force injury but she still has some mild concussive symptoms. She is not on blood thinners but still concerning for acute injury. CT head was done after discussion with the patient to evaluate for acute bleeding or injury. The CT did not show any signs of acute bleeding or swelling. Departure - Departure Disposition: 01 Home, Self Care Clinical Impression: Scalp laceration, Nausea Condition: Stable Record reviewed to determine appropriate education?: Yes Instructions: ED Laceration Scalp Stitch Or Stap Follow-Up: Anusha Gunderson PA-C [Primary Care Provider] - Comments: It is okay to wash and shower. Clean off the wound twice a day with soap and water, or peroxide and water. Apply some antibiotic ointment to it to keep it moist. Also to watch for signs of infection such as purulence, redness or increasing pain. Return to your primary care or the ER at the specified time for suture removal. Suture removal 10 to 12 days. Tylenol every 4-6 hours if needed for pains. Ice or cool towels to the area this evening may help with some of the swelling and discomfort. Your CT scan did not show any signs of internal/brain bleeding or swelling. You may experience some nausea, lightheadedness, blurred vision related to the head injury for a day or 2. Follow-up if lasts more than that.
[2022-06-09] MEDS ORDERED: ACETAMINOPHEN 500 MG TABLET PO STA (15:34)
[2022-06-09] MEDS ORDERED: ONDANSETRON ODT 4 MG TABLET TL STA (15:34)
--- NOTE | 2022-06-09 16:19 | CT Report ---
PROCEDURE: HEAD WO INDICATIONS: struck head; JULIO, nausea. TECHNIQUE: Noncontrast 4.5 mm thick angled axial sections acquired from the foramen magnum to the vertex. For r adiation dose reduction, the following was used: automated exposure control, adjustment of mA and/or kV according to patient size. COMPARISON: MRI dated 01/20/2015. FINDINGS: Image quality: Excellent. CSF spaces: Basal cisterns are patent. No extra-axial fluid collections. Ventricles are normal in size and shape. Brain: No midline shift. No intracranial masses or hemorrhage. No mass effect. Quezada-white matter i nterface is normal. There cerebral volume loss for age with resultant ventricular and sulcal prominen ce. There are periventricular and deep white matter chronic small vessel ischemic changes. Atheroscle rotic calcifications are noted in the intracranial segments of the bilateral internal carotid arterie s. Skull and face: Calvarium and visualized facial bones are intact, without suspicious lesions. There is a small right parietal scalp contusion/hematoma. Sinuses: Visualized sinuses and mastoids are clear. IMPRESSION: CT head without acute intracranial abnormalities. Small right parietal scalp contusion/hematoma without underlying calvarial fractures. Age-related senescent changes and sequela of chronic small vessel ischemic disease. Reviewed by: John Shearer MD on 06/09/2022 4:17 PM PST Approved by: John Shearer MD on 06/09/2022 4:17 PM PST Station ID: [id number]
== END 2022-06-09 16:49 | disposition home or self-care (01) ==
LOC: ED 14:57
DX: S01.01XA Laceration without foreign body of scalp, initial encounter (principal); W22.8XXA Striking against or struck by other objects, initial encounter
CPT/HCPCS: 12002; 70450; 99284; A9270; Q0162

== ENCOUNTER 2022-07-26 06:37 | Outpatient (CLI) | payer MEDICARE, OTHER ==
[2022-07-26 08:59] LABS: CHOL/HDL RATIO 2.2 (<4.4); CHOLESTEROL 178 mg/dL; HDL CHOLESTEROL 80 mg/dL; LDL CHOLESTEROL,CALCULATED 82 mg/dL; TRIGLYCERIDES 82 mg/dL; VLDL CHOLESTEROL 16 mg/dL
[2022-07-26 09:04] LABS: THYROID STIMULATING HORMONE 4.24 uIU/mL (0.34-5.60)
--- NOTE | 2022-07-26 11:40 | CT Report ---
PROCEDURE: CHEST WO INDICATIONS: LUNG NODULES TECHNIQUE: Noncontrast 1mm axial images were acquired from the pulmonary apices to the posterior costophrenic an gles. Axial 5 mm soft tissue kernel reconstructions were performed as well as 8 mm axial MIP and cor onal and sagittal 5 mm reformations. For radiation dose reduction, the following was used: automate d exposure control, adjustment of mA and/or kV according to patient size. COMPARISON: 12/13/2020 and 03/25/2019 FINDINGS: Image quality: Excellent. Lungs and pleura: Small biapical groundglass opacities are redemonstrated, the right slightly increa sed in size and density measuring about 1.9 x 1.3 cm, previously 1.5 x 1.1 cm. The left apical ground glass opacity measures about 0.8 cm in size, stable compared to prior. There are several other areas of subpleural fine groundglass opacity, right middle lobe, 4/177 measuring 9 mm, moderate-sized area in the posterior medial right lower lobe, 4/173, left upper and left lower lobe at a similar axial le vanesa, 4/171, subpleural posterior lateral left lower lobe wedge-shaped area measuring about 2.3 cm, 4/ 199, and posterior right middle lobe, 4/207. Even smaller areas may be present but are obscured by re spiratory motion artifact. An irregular part solid nodule in the left upper lobe at a midlung level m easures 5 mm, 4/163, and is stable. No pleural effusions or pneumothorax. Central and peripheral air ways are patent and normal in caliber. Mediastinum: Heart size is normal. Moderate coronary artery calcification. No pericardial effusion. No mediastinal adenopathy by size criteria. Thoracic aorta and central pulmonary arteries are norm al in size. Esophagus is normal in caliber. No hiatal hernia. Bones and chest wall: No suspicious bony lesions. Deformity of healed left posterior rib fractures 3 through 8. Right humeral head enchondroma. No vertebral body compression fractures. Left paraspinal muscle lipoma. No axillary or supraclavicular adenopathy by size criteria. The thyroid is normal in size and there are no incidental findings. Abdomen: The visible upper abdomen is notable for increased size of a hypodensity in the superior sp leonel now measuring 2.5 cm, previously 2.0 cm. Upper abdominal organs are otherwise normal to the exte nt they're seen. IMPRESSION: 1. Several bilateral groundglass nodules in both lungs, many are stable since 03/25/2019, however onc e in the mid to lower lung are larger and more confluent. Largest left posterior lateral groundglass wedge-shaped opacity is new. There is also been slight increase in size of the index right apical les ion. Differential diagnosis is broad, likely benign postinflammatory change, however adenocarcinoma i n situ, AAH, and lymphoma may have this appearance. 2. No adenopathy in the chest. 3. Moderate coronary artery calcification. 4. Interval enlargement of cystic splenic mass. Evaluation with ultrasound or contrast-enhanced MRI i s recommended. Reviewed by: Maia Suarez MD on 07/26/2022 11:39 AM PST Approved by: Maia Suarez MD on 07/26/2022 11:39 AM PST Station ID: [id number]
--- NOTE | 2022-07-26 12:12 | Ultrasound Report ---
PROCEDURE: Abdomen Limited INDICATIONS: SPLENIC MASS TECHNIQUE: Real-time focused scanning was performed of the abdomen, with image documentation. COMPARISON: CT of chest from the same day and CT of chest dated 12/13/2020 FINDINGS: Spleen is normal in size and measures 10.3 cm in length. 2.7 x 2.3 x 2.2 cm anechoic structure within the spleen is seen with single internal septation. No internal vascularity is noted. Left kidney measures 10.1 cm in length and 1.4 cm in renal cortical thickness. There is no hydronephr osis or nephrolithiasis. No solid-appearing renal lesion. IMPRESSION: 1. 2.7 x 2.3 x 2.2 cm septated cyst in spleen. No solid-appearing splenic lesion. 2. Normal-appearing left kidney. Reviewed by: Felix Riley MD on 07/26/2022 12:10 PM PST Approved by: Felix Riley MD on 07/26/2022 12:10 PM PST Station ID: [id number]
--- NOTE | 2022-07-26 16:40 | DEXA Report ---
PROCEDURE: Dexa Spine and/or Hip INDICATIONS: POSTMENOPAUSAL LUNG NODULE ENLR THYROID, SPLENIC M TECHNIQUE: Dual energy x-ray absorptiometry (DXA) was performed on a Power Assure System. Regions measur ed are the AP Spine, femoral neck, and if needed forearm. COMPARISON: None. FINDINGS: Lumbar Spine: Bone Mineral Density 1.45 g/cm/cm,T score 2.2 Left Femoral Neck: Bone Mineral Density 0.806 g/cm/cm, T score -1.7 Left Hip: Bone Mineral Density 0.970 g/cm/cm,T score -0.3 (T score greater or equal to -1.0: NORMAL) (T score from -1.1 to -2.4: OSTEOPENIA) (T score less than or equal to -2.5 to: OSTEOPOROSIS) Impression: 1. Osteopenia of the left femoral neck. 2. No osteopenia or osteoporosis of the lumbar spine. Patients with diagnosis of osteoporosis or osteopenia should have regular bone mineral density assess ment. For those eligible for Medicare, routine testing is allowed once every 2 years. Testing frequ ency can be increased for patients who have rapidly progressing disease or for those who are receivin g medical therapy to restore bone mass. Reviewed by: Leesa Carlos MD on 07/26/2022 4:38 PM PST Approved by: Leesa Carlos MD on 07/26/2022 4:38 PM PST Station ID: [id number]
--- NOTE | 2022-07-27 08:11 | Ultrasound Report ---
PROCEDURE: Head or Neck Soft Tissue INDICATIONS: POSTMENOPAUSAL LUNG NODULE ENLR THYROID, SPLENIC M TECHNIQUE: Real time scanning was performed of the neck region of interest, with image documentation . COMPARISON: Ultrasound thyroid, 06/18/2020. FINDINGS: Right: Thyroid lobe measures 3.8 x 2.0 x 1.5 cm, and is homogeneous in echotexture. Left: Thyroid lobe measures 4.0 x 1.0 x 1.5 cm, and is homogenous in echotexture. Isthmus: 2.6 mm thick. Nodule number: 1 Location: Right mid Size: 1.6 x 1.1 x 1.1 cm; previously 1.2 x 1.0 x 1.2 cm. Composition: Solid Echogenicity: Hypoechoic Shape: wider than tall. Margins: Smooth Echogenic foci: Not present Total points: 4 ACR TI-RADS category: TI-RADS 4 Previously seen 4 mm spongiform nodule in the left thyroid lobe is not visualized current exam. IMPRESSION: 1. The moderately suspicious nodule in the right thyroid lobe is unchanged in size. Please see enclos ed follow-up recommendation. ACR TI-RADS definitions and recommendations: TI-RADS 1 (benign): 0 points. FNA not needed. TI-RADS 2 (not suspicious): 2 points. FNA not needed. TI-RADS 3 (mildly suspicious): 3 points. "FNA if 2.5 cm or larger, follow up if 1.5 cm or larger (at 1, 3, and 5 years). TI-RADS 4 (moderately suspicious): 4-6 points. "FNA if 1.5 cm or larger, follow up if 1 cm or larger (at 1, 2, 3, and 5 years). TI-RADS 5 (highly suspicious): 7 points or more. "FNA if 1 cm or larger, follow up if 0.5 cm or larger (every year for 5 years). Reviewed by: Nayeli Dent MD on 07/27/2022 8:10 AM PST Approved by: Nayeli Dent MD on 07/27/2022 8:10 AM PST Station ID: [id number]
== END 2022-07-26 06:38 | disposition home or self-care (01) ==
LOC: DI 06:37
PROVIDERS: ATTEND Physician Assistant Medical
DX: R91.8 Other nonspecific abnormal finding of lung field (principal); M85.88 Other specified disorders of bone density and structure, other site; I25.10 Atherosclerotic heart disease of native coronary artery without angina pectoris; E04.1 Nontoxic single thyroid nodule; D73.4 Cyst of spleen; I65.01 Occlusion and stenosis of right vertebral artery; Z78.0 Asymptomatic menopausal state
CPT/HCPCS: 36415; 80061; 83721; 84443

== ENCOUNTER 2022-08-29 09:40 | Outpatient (CLI) | payer MEDICARE, OTHER ==
--- NOTE | 2022-08-29 12:06 | Ultrasound Report ---
PROCEDURE: Carotid Doppler Complete INDICATIONS: CAROTID ARTERIAL DISEASE TECHNIQUE: Color and pulse Doppler interrogation was performed of both carotid systems, with image documentation and velocity measurements. COMPARISON: None. FINDINGS: Right side: Brachial blood pressure: 154/63 mm Hg. Common carotid artery peak systolic velocity: 64.48 cm/sec. Internal carotid artery peak systolic velocity: 110.35 cm/sec. Internal carotid artery end diastolic velocity: 31.16 cm/sec. External carotid artery peak systolic velocity: 62.75 cm/sec. ICA/CCA peak systolic ratio: 1.5 . Quezada scale imaging description: Moderate calcification of the proximal internal carotid artery Percent internal carotid artery stenosis: Less than 50% . Vertebral artery: Flow direction is antegrade. Left side: Brachial blood pressure: 153/63 mm Hg. Common carotid artery peak systolic velocity: 75.97 cm/sec. Internal carotid artery peak systolic velocity: 139.56 cm/sec. Internal carotid artery end diastolic velocity: 41.54 cm/sec. External carotid artery peak systolic velocity: 60.58 cm/sec. ICA/CCA peak systolic ratio: 1.2 . Quezada scale imaging description: Mild plaque at the internal carotid artery Percent internal carotid artery stenosis: 50-69% stenosis by peak systolic velocity criteria . Vertebral artery: Flow direction is antegrade. IMPRESSION: No hemodynamically significant stenosis in the right internal carotid artery. 50-69% stenosis of the left internal carotid artery by peak systolic velocity criteria. The estimate of stenosis included in the report of the imaging study was calculated using the NASCET method Reviewed by: Ben Dyer on 08/29/2022 12:05 PM PDT Approved by: Ben yDer on 08/29/2022 12:05 PM PDT Station ID: [id number]
== END 2022-08-29 09:41 | disposition home or self-care (01) ==
LOC: DI 09:40
PROVIDERS: ATTEND Family Medicine
DX: I65.22 Occlusion and stenosis of left carotid artery (principal)
CPT/HCPCS: 93880

== ENCOUNTER 2023-08-14 13:57 | Outpatient (CLI) | payer MEDICARE, OTHER ==
[2023-08-14 18:06] LABS: CHOL/HDL RATIO 2.3 (<4.4); CHOLESTEROL 183 mg/dL; HDL CHOLESTEROL 80 mg/dL; LDL CHOLESTEROL,CALCULATED 83 mg/dL; TRIGLYCERIDES 98 mg/dL (48-352); VLDL CHOLESTEROL 20 mg/dL
[2023-08-14 18:41] LABS: THYROID STIMULATING HORMONE 1.82 uIU/mL (0.34-5.60)
== END 2023-08-14 13:58 | disposition home or self-care (01) ==
LOC: LAB.N 13:57
PROVIDERS: ATTEND Physician Assistant Medical
DX: I65.01 Occlusion and stenosis of right vertebral artery (principal); I77.9 Disorder of arteries and arterioles, unspecified; E04.9 Nontoxic goiter, unspecified
CPT/HCPCS: 36415; 80061; 83721; 84443

== ENCOUNTER 2023-08-17 19:47 | Emergency (ER) | payer MEDICARE, OTHER ==
[2023-08-17 20:18] LABS: BASOPHILS # (AUTO) 0.1 10^3/uL (0.0-0.1); BASOPHILS % (AUTO) 0.6 %; EOSINOPHILS # (AUTO) 0.4 10^3/uL (0.0-0.7); EOSINOPHILS % (AUTO) 3.5 %; HCT - HEMATOCRIT 46.5 % (37.0-47.0); HGB - HEMOGLOBIN 14.9 g/dL (12.0-16.0); LYMPHOCYTES # (AUTO) 2.6 10^3/uL (1.5-3.5); LYMPHOCYTES % (AUTO) 21.5 %; MEAN CORPUSCULAR VOLUME 87.2 fL (81.0-99.0); NEUTROPHILS % (AUTO) 66.1 %; PLT - PLATELET COUNT 349 10^3/uL (130-450); RED BLOOD COUNT 5.33 10^6/uL (4.20-5.40); RED CELL DISTRIBUTION WIDTH 14.4 % (12.0-15.0); WHITE BLOOD COUNT 12.1 x10^3/uL (4.8-10.8)
--- NOTE | 2023-08-17 20:24 | ED Physician Documentation ---
PD HPI CHEST PAIN - Stated complaint Stated Complaint: CHEST PX/RAPID HR/JULIO - Chief complaint Chief Complaint: Cardiac - History obtained from History obtained from: Patient, Family - History of Present Illness Timing - onset during: Rest Timing - duration: Hours Timing - details: Abrupt onset, Now resolved Quality: Pressure Location: Substernal Radiation: Jaw Improved by: Nothing Associated symptoms: No: Shortness of air, Diaphoresis, Nausea, Vomiting, Feeling faint / dizzy, General Weakness, Palpitations, Cough Similar symptoms before: Has not had sx before Recently seen: Not recently seen - Additional information Additional information: 73-year-old Lexi David has come to the emergency department this evening with her with a chief complaint of anterior chest pain radiating to her jaw that started after she woke up from a nap and sat up. (530pm). In triage she was noted to have atrial fibrillation with rapid ventricular rate at about 149. When she was brought into the emergency department and placed on the monitor shortly after she converted.(8:15pm) Her pain resolved. She indicates that she has not otherwise been ill recently. She does have a history of hypertension and stage IV non-Hodgkin's follicular lymphoma. She has been in remission for 6 years. Review of Systems Constitutional: denies: Fever, Chills, Myalgias, Fatigue Eyes: denies: Decreased vision Ears: denies: Ear pain Nose: denies: Congestion Throat: denies: Sore throat Cardiac: reports: Chest pain / pressure. denies: Pedal edema, Calf pain Respiratory: denies: Dyspnea, Cough GI: denies: Abdominal Pain, Abdominal Swelling, Nausea, Vomiting, Constipation, Diarrhea : denies: Dysuria, Frequency PD PAST MEDICAL HISTORY - Past Medical History Past Medical History: Yes Cardiovascular: Hypertension, High cholesterol Respiratory: Asthma Endocrine/Autoimmune: None GI: Diverticulitis : None HEENT: None Psych: Depression, Anxiety Musculoskeletal: Osteoarthritis, Osteoporosis Derm: None Other Past Medical History: non-Hodgkins stage IV cancer - Past Surgical History Past Surgical History: Yes General: Colonoscopy Ortho: Arthroscopic surgery, 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: Other Cardiovascular: Other - Present Medications Home Medications: Ambulatory Orders Medication Instructions Recorded Confirmed Sertraline [Zoloft] 100 mg PO DAILY 12/12/15 08/17/23 Cholecalciferol (Vitamin D3) 2,000 unit PO DAILY 01/30/16 08/17/23 [Vitamin D3] [place]-3/Dha/Epa/Fish Oil [[place]-3 1,200 mg PO DAILY 01/30/16 08/17/23 Fish Oil EC 1,000 mg] Atorvastatin [Lipitor] 20 mg PO QPM tablet 02/01/16 08/17/23 Aspirin 81 mg PO DAILY 11/03/18 08/17/23 Diltiazem HCl [Diltiazem 12Hr ER] 120 mg PO BID 11/03/18 08/17/23 Tolterodine Tartrate [Detrol LA] 4 mg PO DAILY 11/03/18 08/17/23 Biotin 1,000 mg PO DAILY 08/17/23 08/17/23 Aiden/D3/Mag11/Zinc/Welder Apprentice Combination/Tee/Bor 1 each PO DAILY 08/17/23 08/17/23 [Caltrate 600+D Plus Tablet] - Allergies Allergies/Adverse Reactions: Allergies Allergy/AdvReac Type Severity Reaction Status Date / Time adhesive tape Allergy Rash Verified 08/17/23 19:57 erythromycin base Allergy Unknown Verified 08/17/23 19:57 naproxen AdvReac Intermediate Rash Verified 08/17/23 19:57 Penicillins AdvReac Intermediate Rash Verified 08/17/23 19:57 metoclopramide HCl * AdvReac Unknown Verified 08/17/23 19:57 [From [facility]] - Social History Does the pt smoke?: No Smoking Status: Never smoker Does the pt drink ETOH?: No Does the pt have substance abuse?: No - Immunizations Immunizations are current?: Yes - POLST Patient has POLST: No PD ED PE NORMAL - Vitals Vital signs reviewed: Yes (tachy and hypertensive ) - General General: Alert and oriented X 3, No acute distress, Well developed/nourished, Other (seen at the time of conversion) - HEENT HEENT: Atraumatic, PERRL, EOMI - Neck Neck: Supple, no meningeal sign, No bony TTP - Cardiac Cardiac: RRR, No murmur - Respiratory Respiratory: No respiratory distress, Clear bilaterally - Abdomen Abdomen: Soft, Non tender - Back Back: No CVA TTP, No spinal TTP - Derm Derm: Normal color, Warm and dry, No rash - Extremities Extremities: No deformity, No edema - Neuro Neuro: Alert and oriented X 3, portainer operator 2-12 intact, No motor deficit, No sensory deficit, Normal speech Eye Opening: Spontaneous Motor: Obeys Commands Verbal: Oriented GCS Score: 15 - Psych Psych: Normal mood, Normal affect Results - Vitals Vitals: Vital Signs - 24 hr 08/17/23 08/17/23 08/17/23 19:51 19:57 20:27 Temperature 36.6 C Heart Rate 154 H 146 H 71 Respiratory 16 18 19 Rate Blood Pressure 140/88 H 129/84 H O2 Saturation 95 92 92 08/17/23 08/17/23 08/17/23 20:30 21:00 21:30 Temperature Heart Rate 78 76 75 Respiratory 18 17 15 Rate Blood Pressure 129/70 126/54 L 135/62 H O2 Saturation 91 L 91 L 92 08/17/23 08/17/23 08/17/23 22:00 22:30 23:00 Temperature Heart Rate 74 71 70 Respiratory 15 15 16 Rate Blood Pressure 105/63 117/63 120/59 L O2 Saturation 91 L 91 L 92 08/17/23 08/18/23 08/18/23 23:30 00:00 01:00 Temperature Heart Rate 71 64 64 Respiratory 21 18 19 Rate Blood Pressure 147/100 H 109/60 O2 Saturation 93 93 93 08/18/23 01:14 Temperature Heart Rate 64 Respiratory Rate Blood Pressure O2 Saturation 93 Oxygen O2 Source Room air - EKG (time done) 2001 EKG releavant findings:: EKG personally interpreted by author of this note. Relevant findings are: Rate: Rate (enter#) (149) Rhythm: Atrial fibrillation Ischemia: Other (prominent R in V2 ) Compare to prior EKG: Changed from prior EKG (SPT 11-03-2018 the afib with RVR has developed the large R in V2 was present previously) Computer interpretation: Agree with computer 2016 EKG releavant findings:: EKG personally interpreted by author of this note. Relevant findings are: Rate: Rate (enter#) (78) Rhythm: NSR Compare to prior EKG: Changed from prior EKG (SPT 15 minutes ago the afib has converted and the large R in V2 is smaller. ) Computer interpretation: Agree with computer - Labs Labs: Laboratory Tests 08/17/23 08/17/23 08/17/23 20:12 20:12 22:17 WBC 12.1 H RBC 5.33 Hgb 14.9 Hct 46.5 MCV 87.2 MCH 28.0 MCHC 32.0 RDW 14.4 Plt Count 349 MPV 11.0 H Neut # (Auto) 8.0 H Lymph # (Auto) 2.6 [place] # (Auto) 1.0 Eos # (Auto) 0.4 Baso # (Auto) 0.1 Absolute Nucleated RBC 0.00 Nucleated RBC % 0.0 Sodium 144 Potassium 3.6 Chloride 104 Carbon Dioxide 30 Anion Gap 10.0 BUN 22 H Creatinine 0.9 Estimated GFR (MDRD) 61 L Glucose 98 Calcium 10.5 H Total Bilirubin 0.9 AST 15 ALT 11 Alkaline Phosphatase 104 Troponin I High Sens 9.8 18.4 H* Total Protein 7.1 Albumin 4.8 Globulin 2.3 Albumin/Globulin Ratio 2.1 Lipase 17 08/18/23 00:11 WBC RBC Hgb Hct MCV MCH MCHC RDW Plt Count MPV Neut # (Auto) Lymph # (Auto) [place] # (Auto) Eos # (Auto) Baso # (Auto) Absolute Nucleated RBC Nucleated RBC % Sodium Potassium Chloride Carbon Dioxide Anion Gap BUN Creatinine Estimated GFR (MDRD) Glucose Calcium Total Bilirubin AST ALT Alkaline Phosphatase Troponin I High Sens 22.8 H* Total Protein Albumin Globulin Albumin/Globulin Ratio Lipase - Rads (name of study) chest Relevant Findings:: Prelim report reviewed (Impression: No acute cardiopulmonary process. Old left posterior rib fractures again noted. Enchondroma presumed etiology of chondroid matrix abnormality within the right humeral head also present in 2016.), EMP independent interpretation of test Procedures - IVC sono (time) 2027 Bedside IVC sono: IVC measures (cm) (0.91), IVC collapsed c insp (cm) (complete), Dehydration (est 2 liter deficit) PD Medical Decision Making - ED course Complexity details: reviewed old records, reviewed results, re-evaluated patient, considered differential, d/w patient Reviewed Lab Results: We reviewed a complete blood count showing a white blood cell count elevated at 12.1 normal hemoglobin hematocrit and platelets chemistries were remarkable for a BUN elevated at 22 with a normal creatinine of 0.9 calcium mildly elevated at 10.5 liver functions normal lipase normal high-sensitivity troponin initial is normal at 9.8 a repeat 2 hours later is elevated at 18.4. A third troponin drawn at 0011 was 22.8. My interpretation of these laboratory values are the elevated BUN is consistent with the level of dehydration discovered on interrogation of the IVC with POCUS. The initial troponin of 9.8 is normal and elevated mildly to 18.4 and then 22.8. These are both consistent with rate related demand ischemia. This is suggestive that the patient has some coronary disease. ED course: 73-year-old Lexi David presents to the emergency department with anterior chest pain and was discovered in triage to have atrial fibrillation with rapid ventricular response. This is a new finding for this patient. Shortly after being placed into a bed in the emergency department she spontaneously converted. I entered the room at the time the patient had converted and her pain was resolved. We did find she had some mild volume depletion and we expected to have some elevation in her troponin with demand ischemia from 2 and half hours of elevated heart rate and we did find exactly this. The elevations were mild. I consulted Dr. Walters at [facility] supervisor cigarette making department and reviewed the case with her she agreed with my interpretation of the results and recommended that she have follow-up with supervisor cigarette making department for monitoring for atrial fibrillation and stress testing. Departure - Departure Disposition: Home, Self Care Clinical Impression: Atrial fibrillation with RVR, Dehydration Condition: Stable Instructions: ED Afib, ED Dehydration Follow-Up: Anusha Gunderson PA-C [Primary Care Provider] - Comments: Lexi, today it looks like you had atrial fibrillation with a rapid ventricular response with a heart rate in the 150 range that lasted about 2 and half hours. This was enough of a stress on your heart to cause some mild elevation in your heart enzymes. You did spontaneously converted into a normal sinus rhythm and have stayed in sinus rhythm. We also found today that your dehydrated and we have replaced fluid. I have discussed your case with Dr. Walters a supervisor cigarette making department at [facility]. She recommends a referral to cardiology for monitoring for afib and for stratifying your risk of heart attack with stress testing. Stay hydrated. Forms: PCP List Discharge Date/Time: 08/18/23 01:14
[2023-08-17 20:39] LABS: TROPONIN I HIGH SENSITIVITY 9.8 ng/L (2.3-14.8)
[2023-08-17 20:50] LABS: ALBUMIN 4.8 g/dL (3.2-5.5); ALBUMIN/GLOBULIN RATIO 2.1 (1.0-2.2); BILIRUBIN,TOTAL 0.9 mg/dL (0.2-1.0); CALCIUM 10.5 mg/dL (8.5-10.3); CREATININE 0.9 mg/dL (0.6-1.3); POTASSIUM 3.6 mmol/L (3.5-4.5); TOTAL PROTEIN 7.1 g/dL (6.4-8.9)
--- NOTE | 2023-08-17 21:01 | XRAY Report ---
PROCEDURE: Chest 1V INDICATIONS: Chest pain TECHNIQUE: One view of the chest was acquired. COMPARISON: 07/26/[address], plain film of the chest includes right shoulder 12/16/2015.. FINDINGS: Surgical changes and devices: None. Lungs and pleura: No pleural effusions or pneumothorax. Lungs are clear. Mediastinum: Mediastinal contours appear normal. Heart size is normal. Bones and chest wall: No suspicious bony lesions. Overlying soft tissues appear unremarkable. Old left-sided posterior rib fractures again noted. A chondroid matrix abnormality is again noted within the humeral head on the right, present also in December 2015. Enchondroma is the presumed cause. IMPRESSION: No acute cardiopulmonary process. Old left posterior rib fractures again noted. Enchondroma presumed etiology of chondroid matrix abnor mality within the right humeral head also present in 2015. Reviewed by: Kenneth Khan MD on 08/17/2023 8:59 PM PDT Approved by: Kenneth Khan MD on 08/17/2023 8:59 PM PDT Station ID: [id number]
[2023-08-17] MEDS: SODIUM CHLORIDE 0.9% 1,000 ML IV STA (21:03)
[2023-08-18 00:03] VITALS: O2SAT 93
[2023-08-18 01:06] VITALS: BP 109/60
== END 2023-08-18 01:14 | disposition home or self-care (01) ==
LOC: ED 19:47
DX: E86.0 Dehydration (principal); I48.91 Unspecified atrial fibrillation; I10 Essential (primary) hypertension
CPT/HCPCS: 36415; 80053; 83690; 84484; 85025; 93005; 96360; 99284

== ENCOUNTER 2023-09-06 13:16 | Outpatient (CLI) | payer MEDICARE, OTHER ==
--- NOTE | 2023-09-06 15:24 | Ultrasound Report ---
PROCEDURE: Carotid Doppler Complete INDICATIONS: CAROTID ARTERIAL DISEASE TECHNIQUE: Color and pulse Doppler interrogation was performed of both carotid systems, with image documentation and velocity measurements. COMPARISON: 08/29/2022. FINDINGS: Right side: Brachial blood pressure: 174/78 mm Hg. Common carotid artery peak systolic velocity: 64 cm/sec. Internal carotid artery peak systolic velocity: 122 cm/sec. Internal carotid artery end diastolic velocity: 38 cm/sec. External carotid artery peak systolic velocity: 75 cm/sec. ICA/CCA peak systolic ratio: 1.9 . Quezada scale imaging description: Extensive atherosclerotic plaque. Percent internal carotid artery stenosis: By velocity, less than 50% stenosis. However, on grayscale there is greater than 70% stenosis. Vertebral artery: Flow direction is antegrade. Left side: Brachial blood pressure: 164/70 mm Hg. Common carotid artery peak systolic velocity: 66 cm/sec. Internal carotid artery peak systolic velocity: 122 cm/sec. Internal carotid artery end diastolic velocity: 37 cm/sec. External carotid artery peak systolic velocity: 63 cm/sec. ICA/CCA peak systolic ratio: 1.8 . Quezada scale imaging description: Mild atherosclerotic plaques Percent internal carotid artery stenosis: Less than 50 percent stenosis. Vertebral artery: Flow direction is antegrade. IMPRESSION: 1. In the right internal carotid artery, there is less than 50 percent stenosis based on peak systoli c velocity criteria. However, on grayscale imaging, there is significant stenosis, greater than 70%. 2. In the left internal carotid artery, there is less than 50 percent stenosis based on peak systolic velocity criteria. 3. Antegrade blood flow within the right vertebral artery. 4. Antegrade blood flow within the left vertebral artery. The estimate of stenosis included in the report of the imaging study was calculated using the [facility]-end orsed standards of carotid artery stenosis. Reviewed by: London Velázquez MD on 09/06/2023 3:23 PM PDT Approved by: London Velázquez MD on 09/06/2023 3:23 PM PDT Station ID: [id number]
== END 2023-09-06 13:17 | disposition home or self-care (01) ==
LOC: DI 13:16
PROVIDERS: ATTEND Physician Assistant Medical
DX: I65.23 Occlusion and stenosis of bilateral carotid arteries (principal)
CPT/HCPCS: 93880

== ENCOUNTER 2024-07-06 14:44 | Inpatient (IN) ==
[2024-07-06 16:16] LABS: BASOPHILS # (AUTO) 0.1 10^3/uL (0.0-0.1); EOSINOPHILS # (AUTO) 0.4 10^3/uL (0.0-0.7); EOSINOPHILS % (AUTO) 3.8 %; HCT - HEMATOCRIT 35.6 % (37.0-47.0); HGB - HEMOGLOBIN 10.7 g/dL (12.0-16.0); LYMPHOCYTES # (AUTO) 1.6 10^3/uL (1.5-3.5); LYMPHOCYTES % (AUTO) 17.2 %; MEAN CORPUSCULAR HEMOGLOBIN 25.4 pg (27.0-31.0); MEAN CORPUSCULAR HGB CONC 30.1 g/dL (32.0-36.0); MEAN CORPUSCULAR VOLUME 84.4 fL (81.0-99.0); MEAN PLATELET VOLUME 11.5 fL (7.9-10.8); MONOCYTES # (AUTO) 0.7 10^3/uL (0.0-1.0); NEUTROPHILS # (AUTO) 6.5 10^3/uL (1.5-6.6); NEUTROPHILS % (AUTO) 70.6 %; PLT - PLATELET COUNT 353 10^3/uL (130-450); RED BLOOD COUNT 4.22 10^6/uL (4.20-5.40); RED CELL DISTRIBUTION WIDTH 18.1 % (12.0-15.0); WHITE BLOOD COUNT 9.2 x10^3/uL (4.8-10.8)
[2024-07-06 16:20] LABS: INR 1.8 (0.8-1.2)
[2024-07-06 16:27] LABS: ALBUMIN 4.4 g/dL (3.2-5.5); ALBUMIN/GLOBULIN RATIO 2.1 (1.0-2.2); BILIRUBIN,TOTAL 0.6 mg/dL (0.2-1.0); CALCIUM 9.5 mg/dL (8.5-10.3); CREATININE 0.9 mg/dL (0.6-1.3); POTASSIUM 4.3 mmol/L (3.5-4.5); TOTAL PROTEIN 6.5 g/dL (6.4-8.9)
--- NOTE | 2024-07-06 16:44 | ED Physician Documentation ---
History of Present Illness Stated complaint Stated Complaint: GIB Chief complaint Chief Complaint: General History obtained from History obtained from: Patient and Family Additonal information Additional information: 74-year-old woman with history of GI bleeding needing transfusion a few years ago.. She does not know what the source was and has never had an upper endoscopy. She is on Eliquis for A-fib. Also takes a baby aspirin a day because she has carotid stenosis. For the last 5 days she has had dark and tarry stools and is starting to feel tired. She does not take NSAIDs. Does not drink alcohol. No history of liver disease. Meds/Allgy Home Medications Ambulatory Orders Medication Instructions Recorded Confirmed sertraline 50 mg tablet 100 mg PO DAILY 12/12/15 05/11/24 omega 2-yom-wkd-fish oil 300 1,200 mg PO DAILY 01/30/16 05/11/24 mg-1,000 mg capsule,delayed release aspirin 81 mg chewable tablet 81 mg PO DAILY 11/03/18 05/11/24 calcium 600 mg-D3 800 unit-mag11 1 ea PO DAILY 08/17/23 05/11/24 50 bp-rtwn-wfmxpt-valerie-s.borat tablet (Caltrate 600-D Plus Minerals) albuterol sulfate 90 mcg/actuation 2 puff inhalation Q4H PRN 03/19/24 05/11/24 aerosol inhaler atorvastatin 20 mg tablet (Lipitor) 20 mg PO QPM #90 tabs 04/14/24 05/11/24 diltiazem HCl 120 mg 120 mg PO BID #180 caps 04/14/24 05/11/24 capsule,extended release 12 hr tolterodine 4 mg capsule,extended See Rx Instructions .Route 04/16/24 05/11/24 release 24 hr .COMPLEX #90 caps apixaban 5 mg tablet (Eliquis) 5 mg PO BID 05/11/24 05/11/24 cholecalciferol (vitamin D3) 25 3,000 unit PO DAILY 05/11/24 05/11/24 mcg (1,000 unit) chewable tablet (Vitamin D3) Allergies Allergies Allergy/AdvReac Type Severity Reaction Status Date / Time adhesive tape Allergy Rash Verified 07/06/24 15:12 erythromycin base Allergy Unknown Verified 07/06/24 15:12 naproxen AdvReac Intermediate Rash Verified 07/06/24 15:12 Penicillins AdvReac Intermediate Rash Verified 07/06/24 15:12 metoclopramide HCl * (From AdvReac Unknown Verified 07/06/24 15:12 Reglan) ERYTHROMYCIN AdvReac Unknown Unknown Uncoded 07/06/24 15:12 [facility] Social History Social History Smoking Status: Never smoker If you are a former smoker, when did you quit? (Date/Year): 20 years How many cigarettes a day do you smoke? (20 cigarettes=1 Pk): 25 Do you dip or chew tobacco?: No Patient requests smoking cessation consult: No Initiate information on smoking cessation: No Relationship: Home Mobility Equipment: Wheeled walker and Wheelchair Do you feel safe in your home environment?: Yes Suffered physical, verbal, emotional, or financial abuse?: No ETOH Use: POLST Patient has POLST: No Exam Constitutional normal general appearance and no apparent distress Respiratory breath sounds equal bilaterally and normal respiratory effort Gastrointestinal abdomen soft to palpation and nontender to palpation Genitourinary Black stool from below, done with Migdalia MILLAN present and chaperoning. Guaiac positive. Neurology GCS 15 Results Vitals Vitals: Vital Signs - 24 hr 07/06/24 15:13 07/06/24 17:55 07/06/24 18:15 Temperature 36.6 C 36.7 C 36.8 C Temperature Source Temporal Artery Scan Temporal Artery Scan Oral Pulse Rate 73 Pulse Rate [Monitoring electrodes] 68 Respiratory Rate 18 20 23 Blood Pressure 160/81 H Blood Pressure [Left Brachial artery] 146/80 H 160/77 H O2 Saturation 97 95 96 O2 Source Room air Room air Room air Sedation scale 0-Fully awake 1-Arouses easily Pain Intensity 0 3 0 07/06/24 19:10 Temperature Temperature Source Pulse Rate 72 Pulse Rate [Monitoring electrodes] Respiratory Rate 16 Blood Pressure 138/57 H Blood Pressure [Left Brachial artery] O2 Saturation 95 O2 Source Room air Sedation scale Pain Intensity 0 Oxygen O2 Source Room air Labs Labs: Microbiology 07/06/24 16:55 Occult Blood - Final Stool Laboratory Tests 07/06/24 16:06 WBC 9.2 RBC 4.22 Hgb 10.7 L Hct 35.6 L MCV 84.4 MCH 25.4 L MCHC 30.1 L RDW 18.1 H Plt Count 353 MPV 11.5 H Neut # (Auto) 6.5 Lymph # (Auto) 1.6 [place] # (Auto) 0.7 Eos # (Auto) 0.4 Baso # (Auto) 0.1 Absolute Nucleated RBC 0.00 Nucleated RBC % 0.0 PT 19.0 H INR 1.8 H Sodium 142 Potassium 4.3 Chloride 106 Carbon Dioxide 32 Anion Gap 4.0 L BUN 25 H Creatinine 0.9 Estimated GFR (MDRD) 61 L Glucose 108 H Calcium 9.5 Total Bilirubin 0.6 AST 14 ALT 10 Alkaline Phosphatase 88 Total Protein 6.5 Albumin 4.4 Globulin 2.1 Albumin/Globulin Ratio 2.1 Lipase 18 Blood Type A POSITIVE Antibody Screen NEGATIVE Crossmatch IS Only See Detail PD Medical Decision Making ED course ED course: 74-year-old woman with history of GI bleeding, unknown source but required transfusion, no NSAID or alcohol use. No history of liver disease. On both Eliquis and aspirin for carotid disease and A-fib. Now with 5 days of melena. Vital signs are fine, no hypotension or tachycardia. Her H&H is not bad but it is about 4 points off of her normal, elevated BUN consistent with GI bleed and she is guaiac positive from below. 2 large-bore IVs were placed. We will start Protonix. Spoke with Dr Salazar, our on-call surgeon 4:57 PM who will consult and defers to medicine for admission. They were called at 5:01 PM. No immediate callback. The patient and family are counseled as to the diagnosis and need for admission. This document was made in part using voice recognition software, while efforts are made to proofread this document, sound alike an grammatical errors may occur. I had crossmatch her for blood. I did not order a transfusion. The RN did transfuse blood unfortunately without the order. Care to Dr March at 7p. There is no inpt bed available and she is boarding for admit. Discharge Plan Discharge Patient Disposition: ED Place in Observation Condition: Stable Clinical Impression: GI (gastrointestinal bleed), Adequate anticoagulation on anticoagulant therapy Prescriptions: No Action tolterodine 4 mg capsule,extended release 24hr See Rx Instructions .ROUTE .COMPLEX Qty: 90 3RF Dose Instruction: TAKE 1 CAPSULE DAILY FOR BLADDER CONTROL Rx Instructions: TAKE 1 CAPSULE DAILY FOR BLADDER CONTROL sertraline 50 MG tablet 100 mg PO DAILY omega 5-osm-wwo-fish oil 1 EACH capsule,delayed release(DR/EC) 1,200 mg PO DAILY cholecalciferol (vitamin D3) [Vitamin D3] 25 mcg (1,000 unit) tablet,chewable 3,000 unit PO DAILY aspirin 81 MG tablet,chewable 81 mg PO DAILY [id number] [Caltrate 600-D Plus Minerals] 1 EACH tablet 1 ea PO DAILY albuterol sulfate 90 mcg/actuation HFA aerosol inhaler 2 puff inhalation Q4H PRN atorvastatin [Lipitor] 20 mg tablet 20 mg PO QPM Qty: 90 3RF diltiazem HCl 120 mg capsule,extended release 12 hr 120 mg PO BID Qty: 180 3RF Eliquis 5 mg tablet 5 mg PO BID Print Language: [place] Stand Alone Forms: PCP List
[2024-07-06] MEDS: PANTOPRAZOLE 40 MG VIAL IVP STA (17:10)
[2024-07-06] MEDS: SODIUM CHLORIDE 0.9% 1,000 ML IV STA (17:11)
--- NOTE | 2024-07-06 17:28 | HISTORY & PHYSICAL EXAMINATION ---
Meds/Allgy Home Medications Ambulatory Orders Medication Instructions Recorded Confirmed sertraline 50 mg tablet 100 mg PO DAILY 12/12/15 05/11/24 omega 9-ijx-tvm-fish oil 300 1,200 mg PO DAILY 01/30/16 05/11/24 mg-1,000 mg capsule,delayed release aspirin 81 mg chewable tablet 81 mg PO DAILY 11/03/18 05/11/24 calcium 600 mg-D3 800 unit-mag11 1 ea PO DAILY 08/17/23 05/11/24 50 vy-mgxs-pwnhyw-valerie-s.borat tablet (Caltrate 600-D Plus Minerals) albuterol sulfate 90 mcg/actuation 2 puff inhalation Q4H PRN 03/19/24 05/11/24 aerosol inhaler atorvastatin 20 mg tablet (Lipitor) 20 mg PO QPM #90 tabs 04/14/24 05/11/24 diltiazem HCl 120 mg 120 mg PO BID #180 caps 04/14/24 05/11/24 capsule,extended release 12 hr tolterodine 4 mg capsule,extended See Rx Instructions .Route 04/16/24 05/11/24 release 24 hr .COMPLEX #90 caps apixaban 5 mg tablet (Eliquis) 5 mg PO BID 05/11/24 05/11/24 cholecalciferol (vitamin D3) 25 3,000 unit PO DAILY 05/11/24 05/11/24 mcg (1,000 unit) chewable tablet (Vitamin D3) Allergies Allergies Allergy/AdvReac Type Severity Reaction Status Date / Time adhesive tape Allergy Rash Verified 07/06/24 15:12 erythromycin base Allergy Unknown Verified 07/06/24 15:12 naproxen AdvReac Intermediate Rash Verified 07/06/24 15:12 Penicillins AdvReac Intermediate Rash Verified 07/06/24 15:12 metoclopramide HCl * (From AdvReac Unknown Verified 07/06/24 15:12 Reglan) ERYTHROMYCIN AdvReac Unknown Unknown Uncoded 07/06/24 15:12 PFSH Social History Social History Smoking Status: Never smoker If you are a former smoker, when did you quit? (Date/Year): 20 years How many cigarettes a day do you smoke? (20 cigarettes=1 Pk): 25 Do you dip or chew tobacco?: No Patient requests smoking cessation consult: No Initiate information on smoking cessation: No Relationship: Home Mobility Equipment: Wheeled walker and Wheelchair Do you feel safe in your home environment?: Yes Suffered physical, verbal, emotional, or financial abuse?: No ETOH Use: POLST Patient has POLST: No Conclusion/Plan Lab Results 07/06/24 16:06 07/06/24 16:06
[2024-07-06] MEDS ORDERED: ONDANSETRON 4 MG/2 ML VIAL IVP PRN ×2 (18:27→23:22)
[2024-07-06] MEDS ORDERED: ACETAMINOPHEN 325 MG TABLET PO PRN ×2 (18:27→23:22)
--- NOTE | 2024-07-06 18:51 | CONSULTATION NOTE ---
[facility] Social History Social History Smoking Status: Never smoker If you are a former smoker, when did you quit? (Date/Year): 20 years How many cigarettes a day do you smoke? (20 cigarettes=1 Pk): 25 Do you dip or chew tobacco?: No Patient requests smoking cessation consult: No Initiate information on smoking cessation: No Relationship: Home Mobility Equipment: Wheeled walker and Wheelchair Do you feel safe in your home environment?: Yes Suffered physical, verbal, emotional, or financial abuse?: No ETOH Use: POLST Patient has POLST: No Meds/Allgy Home Medications Ambulatory Orders Medication Instructions Recorded Confirmed sertraline 50 mg tablet 100 mg PO DAILY 12/12/15 05/11/24 omega 6-prz-lpf-fish oil 300 1,200 mg PO DAILY 01/30/16 05/11/24 mg-1,000 mg capsule,delayed release aspirin 81 mg chewable tablet 81 mg PO DAILY 11/03/18 05/11/24 calcium 600 mg-D3 800 unit-mag11 1 ea PO DAILY 08/17/23 05/11/24 50 ob-hllc-igdpqf-valerie-s.borat tablet (Caltrate 600-D Plus Minerals) albuterol sulfate 90 mcg/actuation 2 puff inhalation Q4H PRN 03/19/24 05/11/24 aerosol inhaler atorvastatin 20 mg tablet (Lipitor) 20 mg PO QPM #90 tabs 04/14/24 05/11/24 diltiazem HCl 120 mg 120 mg PO BID #180 caps 04/14/24 05/11/24 capsule,extended release 12 hr tolterodine 4 mg capsule,extended See Rx Instructions .Route 04/16/24 05/11/24 release 24 hr .COMPLEX #90 caps apixaban 5 mg tablet (Eliquis) 5 mg PO BID 05/11/24 05/11/24 cholecalciferol (vitamin D3) 25 3,000 unit PO DAILY 05/11/24 05/11/24 mcg (1,000 unit) chewable tablet (Vitamin D3) Allergies Allergies Allergy/AdvReac Type Severity Reaction Status Date / Time adhesive tape Allergy Rash Verified 07/06/24 15:12 erythromycin base Allergy Unknown Verified 07/06/24 15:12 naproxen AdvReac Intermediate Rash Verified 07/06/24 15:12 Penicillins AdvReac Intermediate Rash Verified 07/06/24 15:12 metoclopramide HCl * (From AdvReac Unknown Verified 07/06/24 15:12 Reglan) ERYTHROMYCIN AdvReac Unknown Unknown Uncoded 07/06/24 15:12 Results Lab Results 07/06/24 16:06 07/06/24 16:06 Other Lab Results: Lab Results x24hrs 07/06/24 Range/Units 16:06 WBC 9.2 (4.8-10.8) x10^3/uL RBC 4.22 (4.20-5.40) 10^6/uL Hgb 10.7 L (12.0-16.0) g/dL Hct 35.6 L (37.0-47.0) % MCV 84.4 (81.0-99.0) fL MCH 25.4 L (27.0-31.0) pg MCHC 30.1 L (32.0-36.0) g/dL RDW 18.1 H (12.0-15.0) % Plt Count 353 (130-450) 10^3/uL MPV 11.5 H (7.9-10.8) fL Neut # (Auto) 6.5 (1.5-6.6) 10^3/uL Lymph # (Auto) 1.6 (1.5-3.5) 10^3/uL [place] # (Auto) 0.7 (0.0-1.0) 10^3/uL Eos # (Auto) 0.4 (0.0-0.7) 10^3/uL Baso # (Auto) 0.1 (0.0-0.1) 10^3/uL Absolute Nucleated RBC 0.00 x10^3/uL Nucleated RBC % 0.0 /100WBC PT 19.0 H (9.9-12.6) secs INR 1.8 H (0.8-1.2) Sodium 142 (135-145) mmol/L Potassium 4.3 (3.5-4.5) mmol/L Chloride 106 (101-111) mmol/L Carbon Dioxide 32 (21-32) mmol/L Anion Gap 4.0 L (6-13) BUN 25 H (6-20) mg/dL Creatinine 0.9 (0.6-1.3) mg/dL Estimated GFR (MDRD) 61 L (>89) Glucose 108 H (74-104) mg/dL Calcium 9.5 (8.5-10.3) mg/dL Total Bilirubin 0.6 (0.2-1.0) mg/dL AST 14 (10-42) IU/L ALT 10 (10-60) IU/L Alkaline Phosphatase 88 (42-121) IU/L Total Protein 6.5 (6.4-8.9) g/dL Albumin 4.4 (3.2-5.5) g/dL Globulin 2.1 (2.1-4.2) g/dL Albumin/Globulin Ratio 2.1 (1.0-2.2) Lipase 18 (11-82) U/L Blood Type A POSITIVE Antibody Screen NEGATIVE Crossmatch IS Only See Detail Conclusion and Plan Consultation Note Consultation Note: General Surgery Consultation Note Assessment: 1) Melena, hemodynamically stable Recommendation: 1) PPI 2) Serial H&H 3) Transfuse as indicated 4) EGD tomorrow 5) NPO after midnight <><><><><><><><><><> Reason for Consultation I am requested by Dr. Wyatt provide consultation for: GI Bleed Chief Complaint Nausea, melena JOSE Elliott is a 74 year old female who developed melena last Saturday and it has persisted until today. She has also experience nausea and emesis but no blood or coffee grounds were in the emesis. She denies chest pain, SOB, or abdominal pain. She has used Tums in the past for what she describes as heartburn. She tells me that she had similar symptoms in the past and in 2016 had an EGD and CS which revealed a normal stomach and a small benign TA that was removed from the transverse colon. She denies the use of NSAIDs or alcohol. She is on Eliquis for a-fib. Past Medical History Lymphoma Past Surgical History Ankle surgery Family History - See above Social History - See above Current Medications See "Medication" section Allergies See list ROS Pertinent positives Nausea, emesis, melena All other reviewed systems negative Physical Examination Vital Signs: BP 160/77; P 68; RR 23; T 36.8 BMI: 32 GENERAL APPEARANCE: Normal development, normal body habitus, normal grooming PSYCHIATRIC: AAO; Comfortable; In NAD EYES: Pupils equal, round and reactive to light, sclera anicteric EARS, NOSE, MOUTH, THROAT: Hearing normal, Oral mucous membranes moist and without lesions; NECK: No crepitus, lymphadenopathy, or thyromegaly LUNGS: Clear to auscultation without wheezing; No use of accessory muscles to breathe CARDIOVASCULAR: Heart-NSR without murmurs; Palpable carotid arteries - no bruits; Aorta, Femoral, Pedal pulses palpable; Peripheral edema negative ABD: Soft, non-tender, non-distended, active bowel sounds LYMPHATIC: Neck, Axillae, Groin no palpable adenopathy EXTREMITIES: No clubbing, cyanosis, infections SKIN: Anicteric; No rashes, lesions, Ulcerations Labs WBC 9.3; H/H 10.7/35.6; Plt 353k; INR 1.8; Na 142; K 4.3; BUN 25; Cr 0.9; Glu 108 See "Labs" section Antibiotics: N/A VTEP: Pending Imaging N/A Neptali Salazar MD, [facility] General Surgery Service [phone]
[2024-07-06] MEDS: PANTOPRAZOLE 40 MG VIAL IVP SCH (21:16)
[2024-07-06] MEDS ORDERED: SODIUM CHLORIDE FLUSH 0.9% 10 ML SYRINGE IVP PRN (23:22)
--- NOTE | 2024-07-06 23:26 | HISTORY & PHYSICAL EXAMINATION ---
Chief Complaint Chief Complaint Chief Complaint: dark tarry stool History of Present Illness Admitted From Admitted From:: ED History Obtained From Records Reviewed: EMR History obtained from: ED staff and Patient Exam Limitations: Telemedicine History of Present Illness HPI Comment/Other: 74F c c carotid artery disease and hx of carotid stent and paroxysmal atrial fibrillation on Eliquis and hx of GI who presents to the ED reporting melanotic stool for since Saturday last week, approx 5 days. Patient reports 1-2 dark melanotic BM daily. no ibuprofen/nsaids. no abdominal pain. last Eliquis was this morning. positive vomiting. she reports nonbloody vomiting and intermittent basis since this past summer without triggers or patterns. no coffee grounds. no new meds. no trauma. no travel. no other places of bleed. prior hx of GI bleed 3 years ago. Review of Systems Status of ROS: 10 or more systems reviewed and unremarkable except as noted in history and below [facility] Medical History Medical History (Updated 07/06/24 @ 22:57 by Migdalia Haque RN) GI bleed Social History Social History Smoking Status: Never smoker If you are a former smoker, when did you quit? (Date/Year): 20 years How many cigarettes a day do you smoke? (20 cigarettes=1 Pk): 25 Do you dip or chew tobacco?: No Patient requests smoking cessation consult: No Initiate information on smoking cessation: No Relationship: Level: Independent Home Mobility Equipment: Wheeled walker and Wheelchair Do you feel safe in your home environment?: Yes Suffered physical, verbal, emotional, or financial abuse?: No ETOH Use: POLST Patient has POLST: No Meds/Allgy Home Medications Ambulatory Orders Medication Instructions Recorded Confirmed sertraline 50 mg tablet 100 mg PO DAILY 12/12/15 05/11/24 omega 7-imh-zpn-fish oil 300 1,200 mg PO DAILY 01/30/16 05/11/24 mg-1,000 mg capsule,delayed release aspirin 81 mg chewable tablet 81 mg PO DAILY 11/03/18 05/11/24 calcium 600 mg-D3 800 unit-mag11 1 ea PO DAILY 08/17/23 05/11/24 50 mf-szwh-ovwgcp-valerie-s.borat tablet (Caltrate 600-D Plus Minerals) albuterol sulfate 90 mcg/actuation 2 puff inhalation Q4H PRN 03/19/24 05/11/24 aerosol inhaler atorvastatin 20 mg tablet (Lipitor) 20 mg PO QPM #90 tabs 04/14/24 05/11/24 diltiazem HCl 120 mg 120 mg PO BID #180 caps 04/14/24 05/11/24 capsule,extended release 12 hr tolterodine 4 mg capsule,extended See Rx Instructions .Route 04/16/24 05/11/24 release 24 hr .COMPLEX #90 caps apixaban 5 mg tablet (Eliquis) 5 mg PO BID 05/11/24 05/11/24 cholecalciferol (vitamin D3) 25 3,000 unit PO DAILY 05/11/24 05/11/24 mcg (1,000 unit) chewable tablet (Vitamin D3) Allergies Allergies Allergy/AdvReac Type Severity Reaction Status Date / Time adhesive tape Allergy Rash Verified 07/06/24 15:12 erythromycin base Allergy Unknown Verified 07/06/24 15:12 naproxen AdvReac Intermediate Rash Verified 07/06/24 15:12 Penicillins AdvReac Intermediate Rash Verified 07/06/24 15:12 metoclopramide HCl * (From AdvReac Unknown Verified 07/06/24 15:12 Reglan) ERYTHROMYCIN AdvReac Unknown Unknown Uncoded 07/06/24 15:12 Exam Constitutional normal general appearance and no apparent distress Respiratory breath sounds equal bilaterally and normal respiratory effort Gastrointestinal abdomen soft to palpation and nontender to palpation Genitourinary Black stool from below, done with Migdalia RN present and chaperoning. Guaiac positive. Neurology GCS 15 Conclusion/Plan Problem List (1) GI (gastrointestinal bleed): Plan: -upper vs lower. since melanotic, likely upper. will make npo. PPI gtt. iv fluid support. monitor hgb q6. consider transfusion <8. followup gen surgery recommendation (2) Asthma: Plan: -stable. no acute exacerbation. prn duoneb (3) Paroxysmal atrial fibrillation: Plan: -rate controlled. continue on home diltiazem po. monitor on tele. hold DOAC 2/2 GI bleed (4) Benign essential hypertension: Plan: -controlled. continue home diltiazem po. monitor blood pressure with repeat vital checks Plan inpatient. npo. Lab Results Lab results reviewed: Yes 07/06/24 16:06 07/06/24 16:06 Core Measures Anticipated LOS I expect patient to be DC'd or transferred within 96 hours.: Yes Issues Hospital Issues and Management Plan: The patient consented to receive this telemedicine service, which I performed via live two-way audiovisual equipment. The patient is at [facility] and I am physically in [facility]. A nurse assisted me in the visit. Full Code SCDs Inpatient America Llanes DO Internal Medicine [employer] Tele Range Aide DVT/VTE - Prophylaxis VTE/DVT Device ordered at admit?: Yes VTE/DVT Prophylaxis med ordered at admit?: No Not Ordered - Medical Reason: Contraindicated Telemedicine Consult Details Provider Location & Consult Time Telemedicine consultation conducted via videoconferencing?: Yes List names and roles of persons who participated in consult:: Ed staff and clinical staff anesthesiologist and patient Telemedicine provider location:: [facility] Time Telemedicine consult began:: 23:05 Time Telemedicine consult completed:: 00:05
[2024-07-07] MEDS: PANTOPRAZOLE 80 MG in SODIUM CHLORIDE 0.9% 100ML 100 ML IV SCH (00:44)
[2024-07-07] MEDS: SODIUM CHLORIDE 0.9% 1,000 ML IV SCH (00:44)
--- NOTE | 2024-07-07 00:59 | ED Physician Documentation ---
ED Addendum Addendum Addendum: I received signout/turnover of care of this patient from Dr. Reis; please see his note for complete H&P. In brief, patient presents to the ED with black stool with past several days. Patient's past medical history includes GI bleed without a determined source. Currently, the patient's prescription medications include Eliquis for atrial fibrillation as well as ASA. Patient is guaiac positive (Hemoccult). Hemoglobin 10.7. Previous results indicate her baseline H/H are within normal limits. Patient did have anemia in 2016 but this was related to the aforementioned previous GI bleed. Also note that the most recent hemoglobin for comparative purposes is from 11 months ago (14.9). Prior to signout, patient has already received [address] Escobar signed this patient out to me because there are no beds available at [facility] at time of signout. However, during my overnight shift, a medical/surgical bed did become available. I thus discussed this case with the on-call [facility] telehealth practitioner (Dr. Llanes) who accepts patient for admission to [facility]. Note that Dr. Reis had already discussed this patient with the on-call surgeon for [facility] (Dr. Salazar), and Dr. Salazar's note in [facility] indicates recommendation of overnight inpatient stay, n.p.o. after midnight, PPI (already given during Dr. Reis's shift (protonix IV)) with plan to undertake upper endoscopy in the morning. Discharge Plan Discharge Patient Disposition: ED Place in Observation Condition: Stable Clinical Impression: GI (gastrointestinal bleed), Adequate anticoagulation on anticoagulant therapy Interventions: ED Admission Assessment Last Done: 07/07/24 00:05
[2024-07-07] MEDS: SODIUM CHLORIDE FLUSH 0.9% 10 ML SYRINGE IVP SCH (01:26)
[2024-07-07] MEDS ORDERED: IPRATROPIUM/ALBUTEROL 3 ML NEB INH PRN (01:35)
[2024-07-07 06:05] LABS: BASOPHILS # (AUTO) 0.1 10^3/uL (0.0-0.1); BASOPHILS % (AUTO) 0.7 %; EOSINOPHILS # (AUTO) 0.4 10^3/uL (0.0-0.7); EOSINOPHILS % (AUTO) 4.8 %; HCT - HEMATOCRIT 33.3 % (37.0-47.0); HGB - HEMOGLOBIN 10.3 g/dL (12.0-16.0); LYMPHOCYTES # (AUTO) 1.7 10^3/uL (1.5-3.5); LYMPHOCYTES % (AUTO) 20.3 %; MEAN CORPUSCULAR HEMOGLOBIN 26.3 pg (27.0-31.0); MEAN CORPUSCULAR HGB CONC 30.9 g/dL (32.0-36.0); MEAN CORPUSCULAR VOLUME 85.2 fL (81.0-99.0); MEAN PLATELET VOLUME 11.2 fL (7.9-10.8); MONOCYTES # (AUTO) 0.8 10^3/uL (0.0-1.0); NEUTROPHILS # (AUTO) 5.3 10^3/uL (1.5-6.6); NEUTROPHILS % (AUTO) 63.8 %; PLT - PLATELET COUNT 266 10^3/uL (130-450); RED BLOOD COUNT 3.91 10^6/uL (4.20-5.40); RED CELL DISTRIBUTION WIDTH 17.3 % (12.0-15.0); WHITE BLOOD COUNT 8.4 x10^3/uL (4.8-10.8)
[2024-07-07 06:23] LABS: CALCIUM 8.9 mg/dL (8.5-10.3); CREATININE 0.9 mg/dL (0.6-1.3); PHOSPHORUS 2.8 mg/dL (2.5-5.0); POTASSIUM 3.5 mmol/L (3.5-4.5)
[2024-07-07] MEDS: NYSTATIN POWDER 15 GM TOP SCH (06:49)
--- NOTE | 2024-07-07 06:55 | PROVIDER PROGRESS NOTE ---
Progress Note Progress Note Progress Note: General Surgery Progress Note Lexi has had an uneventful evening. She denies nausea or vomiting. She has not had a bowel motion. She has no abdominal pain. Her VS are stable; She is AAO and cooperative. Her H&H this morning after 1 unit of PRBC in the ED last night is 10.3/33.3; Plt 266k; INR 1.8; BMP WNL She has been NPO since midnight and is ready for her EGD today. Consent: EGD Lexi has been counseled for the procedure (EGD), it's indications, risks, benefits and expected outcome as well as alternative therapies. We specifically discussed risks associated with anesthesia and insertion of the endoscope into the UGI tract which includes bleeding and/or injury to the esophagus which may require surgical intervention. Lexi understands, agrees, and consents to the proposed operative strategy and requests that we proceed with the procedure as outlined in our discussion. Neptali Salazar MD, FACS General Surgery Service
[2024-07-07] MEDS: diltiaZEM CD 120 MG CAPSULE PO SCH (09:07)
--- NOTE | 2024-07-07 13:14 | ANESTHESIA PROCEDURE NOTE ---
Pre-Anesthesia VS, & Labs Diagnosis Surgical Diagnosis:: GI bleed Procedure Procedure: EGD Vitals Vital Signs: Temp Pulse Resp BP Pulse Ox 36.6 C 70 20 143/63 H 93 07/07/24 12:17 07/07/24 12:17 07/07/24 12:17 07/07/24 12:17 07/07/24 12:17 NPO NPO: >8 hours Is Patient ?: Not Applicable Lab Results Current Lab Results: Laboratory Tests 07/07/24 10:59: Hgb 11.0 L 07/07/24 05:40: WBC 8.4, RBC 3.91 L, Hgb 10.3 L, Hct 33.3 L, MCV 85.2, MCH 26.3 L, MCHC 30.9 L, RDW 17.3 H, Plt Count 266, MPV 11.2 H, Neut # (Auto) 5.3, Lymph # (Auto) 1.7, [place] # (Auto) 0.8, Eos # (Auto) 0.4, Baso # (Auto) 0.1, Absolute Nucleated RBC 0.00, Nucleated RBC % 0.0, Sodium 142, Potassium 3.5, Chloride 106, Carbon Dioxide 30, Anion Gap 6.0, BUN 20, Creatinine 0.9, Estimated GFR (MDRD) 61 L, Glucose 85, Calcium 8.9, Phosphorus 2.8, Magnesium 2.0 07/06/24 16:06: WBC 9.2, RBC 4.22, Hgb 10.7 L, Hct 35.6 L, MCV 84.4, MCH 25.4 L, MCHC 30.1 L, RDW 18.1 H, Plt Count 353, MPV 11.5 H, Neut # (Auto) 6.5, Lymph # (Auto) 1.6, [place] # (Auto) 0.7, Eos # (Auto) 0.4, Baso # (Auto) 0.1, Absolute Nucleated RBC 0.00, Nucleated RBC % 0.0, PT 19.0 H, INR 1.8 H, Sodium 142, Potassium 4.3, Chloride 106, Carbon Dioxide 32, Anion Gap 4.0 L, BUN 25 H, Creatinine 0.9, Estimated GFR (MDRD) 61 L, Glucose 108 H, Calcium 9.5, Total Bilirubin 0.6, AST 14, ALT 10, Alkaline Phosphatase 88, Total Protein 6.5, Albumin 4.4, Globulin 2.1, Albumin/Globulin Ratio 2.1, Lipase 18, Blood Type A POSITIVE, Antibody Screen NEGATIVE, Crossmatch IS Only See Detail Lab results reviewed: Yes 07/07/24 10:59 07/07/24 05:40 Meds/Allgy Home Medications Ambulatory Orders Medication Instructions Recorded Confirmed sertraline 50 mg tablet 100 mg PO DAILY 12/12/15 05/11/24 omega 3-ayz-pmd-fish oil 300 1,200 mg PO DAILY 01/30/16 05/11/24 mg-1,000 mg capsule,delayed release aspirin 81 mg chewable tablet 81 mg PO DAILY 11/03/18 05/11/24 calcium 600 mg-D3 800 unit-mag11 1 ea PO DAILY 08/17/23 05/11/24 50 wj-sgfr-rolhwu-valerie-s.borat tablet (Caltrate 600-D Plus Minerals) albuterol sulfate 90 mcg/actuation 2 puff inhalation Q4H PRN 03/19/24 05/11/24 aerosol inhaler atorvastatin 20 mg tablet (Lipitor) 20 mg PO QPM #90 tabs 04/14/24 05/11/24 diltiazem HCl 120 mg 120 mg PO BID #180 caps 04/14/24 05/11/24 capsule,extended release 12 hr tolterodine 4 mg capsule,extended See Rx Instructions .Route 04/16/24 05/11/24 release 24 hr .COMPLEX #90 caps apixaban 5 mg tablet (Eliquis) 5 mg PO BID 05/11/24 05/11/24 cholecalciferol (vitamin D3) 25 3,000 unit PO DAILY 05/11/24 05/11/24 mcg (1,000 unit) chewable tablet (Vitamin D3) Allergies Allergies Allergy/AdvReac Type Severity Reaction Status Date / Time adhesive tape Allergy Rash Verified 07/06/24 15:12 erythromycin base Allergy Unknown Verified 07/06/24 15:12 naproxen AdvReac Intermediate Rash Verified 07/06/24 15:12 Penicillins AdvReac Intermediate Rash Verified 07/06/24 15:12 metoclopramide HCl * (From AdvReac Unknown Verified 07/06/24 15:12 Reglan) ERYTHROMYCIN AdvReac Unknown Unknown Uncoded 07/06/24 15:12 [facility] Medical History Medical History (Updated 07/07/24 @ 13:13 by Neetu Kearney CRNA) Lymphoma Benign essential hypertension Anxiety disorder Asthma MECCA (obstructive sleep apnea) Paroxysmal atrial fibrillation GI bleed Social History Social History Smoking Status: Never smoker If you are a former smoker, when did you quit? (Date/Year): 20 years How many cigarettes a day do you smoke? (20 cigarettes=1 Pk): 25 Do you dip or chew tobacco?: No Patient requests smoking cessation consult: No Initiate information on smoking cessation: No Relationship: Level: Independent Home Mobility Equipment: Wheeled walker and Wheelchair Do you feel safe in your home environment?: Yes Suffered physical, verbal, emotional, or financial abuse?: No ETOH Use: POLST Patient has POLST: No Anesthesia Exam (Expanded) Exam General: Alert, Oriented x3 and Cooperative Dental: Dentures full Upper and Dentures full Lower Mouth Openin Fingerbreadth Neck Mobility: Normal Mallampati classification: II Thyromental Distance: 4-6 cm Plan Plan Anesthesia Type: General and Total IV Consent for Procedure(s) Verified and Reviewed: Yes Code Status: Attempt Resuscitation ASA Classification ASA classification: 3-Severe systemic disease Is this case an emergency?: No
[2024-07-07] MEDS ORDERED: PROPOFOL 200 MG/20 ML VIAL IVP ONE (13:59)
[2024-07-07] MEDS ORDERED: LIDOCAINE-MPF 2% 5 ML VIAL ONE (13:59)
--- NOTE | 2024-07-07 14:59 | PROVIDER PROGRESS NOTE ---
Progress Note Progress Note Progress Note: General Surgery Brief Procedure Note (see "Provation" for details) Preop Diagnosis: UGI bleed Postop Diagnosis: Mild duodenitis Procedure: EGD] Recommendation: 1) Regular diet 2) Avoid NSAIDs 3) PPI for 4-6 weeks 4) OK to discharge later today Neptali Salazar MD, [facility] General Surgery Service
--- NOTE | 2024-07-07 15:43 | ANESTHESIA POST OP EVALUATION ---
Anesthesia Post Eval Post Anesthesia Eval Vitals: Last Vital Signs Temp 36.8 C 07/07/24 15:07 Pulse 66 07/07/24 15:07 Resp 20 07/07/24 15:04 BP 133/62 H 07/07/24 15:07 Pulse Ox 92 07/07/24 15:07 CV Function Including HR & BP: Stable Pain Control: Satisfactory Nausea & Vomiting: Negative Mental Status: Baseline Respiratory Status: Airway Patent Hydration Status: Satisfactory Anesthesia Complications: None
[2024-07-07 15:52] VITALS: O2SAT 94
--- NOTE | 2024-07-07 16:14 | PHARMACY PROGRESS NOTE ---
Best Possible Medication History Admit Date and Time: 07/06/24 2321 Home Medications Medication Instructions Recorded Confirmed Type sertraline 50 mg tablet 100 mg PO DAILY 12/12/15 07/07/24 History omega 8-wio-utk-fish oil 300 1,200 mg PO DAILY 01/30/16 07/07/24 History mg-1,000 mg capsule,delayed release aspirin 81 mg chewable tablet 81 mg PO DAILY 11/03/18 07/07/24 History albuterol sulfate 90 mcg/actuation 2 puff inhalation Q4H PRN 03/19/24 07/07/24 History aerosol inhaler shortness of breath or wheezing atorvastatin 20 mg tablet (Lipitor) 20 mg PO QPM #90 tabs 04/14/24 07/07/24 Rx diltiazem HCl 120 mg 120 mg PO BID #180 caps 04/14/24 07/07/24 Rx capsule,extended release 12 hr apixaban 5 mg tablet (Eliquis) 5 mg PO BID 05/11/24 07/07/24 History biotin 1 mg capsule 1 mg PO DAILY 07/07/24 07/07/24 History calcium carbonate (Calcium 600) 1,200 mg PO DAILY 07/07/24 07/07/24 History cholecalciferol (vitamin D3) 50 50 mcg PO DAILY 07/07/24 07/07/24 History mcg (2,000 unit) capsule coconut oil 1,000 mg capsule 1,000 mg PO DAILY 07/07/24 07/07/24 History tolterodine 4 mg capsule,extended 4 mg PO DAILY 07/07/24 07/07/24 History release 24 hr Processed by: Pharmacy Medications reviewed in ED?: No Medication History completed: Yes Patient Interview: Completed Secondary Source(s): Written medication list, Spouse/Significant other and Insurance records [facility] Statement: As the person ultimately responsible for medication therapy, providers are able to order a medication from an existing home medication list in [facility] via the "Reconcile Routine" prior to Confirmation of that medication by child support specialist. Such practice is discouraged except when the physician, in their clinical judgment, deems that a medical need exists for a medication without regard to previous use.
--- NOTE | 2024-07-07 17:35 | Discharge Summary ---
"Discharge Summary Admit Date: 07/06/24 Discharge Date: 07/07/24 Discharging Provider: Vivinaa Taylor MD Primary Care Provider: SOFIA Urias Code Status: Attempt Resuscitation DIAGNOSES Discharge Diagnoses with Status of Each Condition: 1 GI bleed 2. Melena 3. Stable asthma 4. History of paroxysmal atrial fibrillation 5. Benign essential hypertension 6. Divina intertrigo 7. Adequate anticoagulation on anticoagulation therapy HPI History of Present Illness: 74F c c carotid artery disease and hx of carotid stent and paroxysmal atrial fibrillation on Eliquis and hx of GI who presents to the ED reporting melanotic stool for since Saturday last week, approx 5 days. Patient reports 1-2 dark melanotic BM daily. no ibuprofen/nsaids. no abdominal pain. last Eliquis was this morning. positive vomiting. she reports nonbloody vomiting and intermittent basis since this past summer without triggers or patterns. no coffee grounds. no new meds. no trauma. no travel. no other places of bleed. prior hx of GI bleed 3 years ago. CONSULTS | PROCEDURES Consultations: General Surgery, Dr. Salazar Procedures: 1. Transfusion of 1 unit of packed cells 2. EGD HOSPITAL COURSE Hospital Course: Unfortunately the patient was inadvertently transfused 1 unit of blood in the ER. The physician had ordered a type and cross. The nurse picked up the unit and transfused it without the order. Patient's hemoglobin remained stable at 10, her baseline hemoglobin is 14.9. She had no further melanotic stools since being in the emergency room. She was placed n.p.o. with serial hemograms to monitor her. Hemoglobins were 10.7, 10.3, 11.0, 11.0. Endoscopy done by general surgery showed her to have mild duodenitis but no active source of bleeding. No ulcers. General surgery recommends discontinuing any nonsteroidal therapy, and starting her on a proton pump inhibitor for the next 6 weeks. I have instructed the patient that she can no longer take any nonsteroidal and that the only medication she can take for pain, that is [id number], is Tylenol. I was able to speak to cardiology on-call who takes care of her with regards to the Eliquis. They usually defer to the surgeon about when to start Eliquis. General surgery says that she could start it again in the next day or 2. The patient had been admitted inpatient status. She stabilized quicker than we thought she would. But she will be discharged from inpatient status in stable condition. She also had Divina intertrigo during her stay and nystatin was prescribed. At discharge, I was able to speak to her and her granddaughter who is a [employer]. Instructions were repeated with regards to her medications as the patient has a new diagnosis of mild dementia or cognitive deficit. Blood pressure was 166/52, pulse 65, respirations 18, temperature 36.5, 94% O2 sat. She is an exceedingly pleasant jill elderly female who looks older than stated age. Right carotid bruit. Supple neck. Clear lungs. Regular rate and rhythm. Abdomen is soft, nontender with normal bowel sounds. No masses. Extremities without edema. She is ambulating in her room without any assist. I watched her get up, go to the bathroom, get up from the toilet, wash her hands. Also wants to get up to go brush her teeth and get back in bed. There is no tachypnea, fatigue, or increased respiratory effort. I have asked her to follow-up with her primary care provider in the next 1 to 2 weeks. Consider getting a CBC to make sure her hemoglobin and hematocrit are stable. To take the omeprazole 40 mg p.o. twice daily for the next month. She can resume her Eliquis in the next 2 days. Greater than 30 minutes was spent coordinating discharge as I spoke to her general surgeon and the general surgeon about their request. This document was made in part using voice recognition software. While efforts are made to proofread this document, sound alike and grammatical errors may occur. ALLERGIES Allergies Allergy/AdvReac Type Severity Reaction Status Date / Time adhesive tape Allergy Rash Verified 07/06/24 15:12 erythromycin base Allergy Unknown Verified 07/06/24 15:12 naproxen AdvReac Intermediate Rash Verified 07/06/24 15:12 Penicillins AdvReac Intermediate Rash Verified 07/06/24 15:12 metoclopramide HCl * (From AdvReac Unknown Verified 07/06/24 15:12 Reglan) ERYTHROMYCIN AdvReac Unknown Unknown Uncoded 07/06/24 15:12 MEDICATIONS Ambulatory Orders Medication Instructions Recorded Confirmed sertraline 50 mg tablet 100 mg PO DAILY 12/12/15 07/07/24 omega 6-fzj-euw-fish oil 300 1,200 mg PO DAILY 01/30/16 07/07/24 mg-1,000 mg capsule,delayed release albuterol sulfate 90 mcg/actuation 2 puff inhalation Q4H PRN 03/19/24 07/07/24 aerosol inhaler shortness of breath or wheezing atorvastatin 20 mg tablet (Lipitor) 20 mg PO QPM #90 tabs 04/14/24 07/07/24 diltiazem HCl 120 mg 120 mg PO BID #180 caps 04/14/24 07/07/24 capsule,extended release 12 hr apixaban 5 mg tablet (Eliquis) 5 mg PO BID 05/11/24 07/07/24 biotin 1 mg capsule 1 mg PO DAILY 07/07/24 07/07/24 calcium carbonate (Calcium 600) 1,200 mg PO DAILY 07/07/24 07/07/24 cholecalciferol (vitamin D3) 50 50 mcg PO DAILY 07/07/24 07/07/24 mcg (2,000 unit) capsule coconut oil 1,000 mg capsule 1,000 mg PO DAILY 07/07/24 07/07/24 nystatin 100,000 unit/gram topical 1 applic topical BID #15 grams 07/07/24 powder (Nyamyc) omeprazole 40 mg capsule,delayed 40 mg PO BID #60 caps 07/07/24 release tolterodine 4 mg capsule,extended 4 mg PO DAILY 07/07/24 07/07/24 release 24 hr LABS 07/07/24 17:00 07/07/24 05:40 Discharge Plan Discharge Patient Disposition: 01 Home, Self Care Condition: Stable Medically Cleared Date:: 07/07/24 Prescriptions: New nystatin [Nyamyc] 100,000 unit/gram Powder 1 applic topical BID Qty: 15 0RF omeprazole 40 mg capsule,delayed release(DR/EC) 40 mg PO BID Qty: 60 2RF Continued sertraline 50 MG tablet 100 mg PO DAILY omega 1-jph-tnu-fish oil 1 EACH capsule,delayed release(DR/EC) 1,200 mg PO DAILY calcium carbonate [Calcium 600] 600 mg calcium (1,500 mg) tablet 1,200 mg PO DAILY cholecalciferol (vitamin D3) 50 mcg (2,000 unit) capsule 50 mcg PO DAILY tolterodine 4 mg capsule,extended release 24hr 4 mg PO DAILY biotin 1 mg capsule 1 mg PO DAILY coconut oil 1,000 mg capsule 1,000 mg PO DAILY albuterol sulfate 90 mcg/actuation HFA aerosol inhaler 2 puff inhalation Q4H PRN (Reason: shortness of breath or wheezing) atorvastatin [Lipitor] 20 mg tablet 20 mg PO QPM Qty: 90 3RF diltiazem HCl 120 mg capsule,extended release 12 hr 120 mg PO BID Qty: 180 3RF Held Eliquis 5 mg tablet 5 mg PO BID Hold Instructions: Resume on 07/14/24. you need to have your duodenal inflammation heal before you can resume your eliquis. DO NOT resume your aspirin. Discontinued aspirin 81 MG tablet,chewable 81 mg PO DAILY Activity Restrictions: Activity as Tolerated Health Concerns: You have had recent problems with your heart rhythm and blockages in your right neck artery. One of the medicines that was being used to treat you is Eliquis to reduce your risk of stroke from your irregular heart rhythm (atrial fibrillation). You also take an aspirin a day to reduce your risk of stroke and heart attack. You presented to the hospital with black tarry stools for several days. And found to have new anemia. A normal amount of blood in a woman is about 12 to 14 g of hemoglobin. You presented as 10 g of hemoglobin. You shared with me that you have a history of a GI bleed 3 to 4 years ago and you were hospitalized at [facility]. We observed you overnight and your blood work remained stable. You had no further drop in your hemoglobin. You underwent an esophagogastroduodenoscopy or an upper endoscopy of your stomach. The surgeon found you to have inflammation of the duodenum but no ulcer of your stomach or duodenum. No active bleeding. For the rest of the day you have remained stable. Blood work and blood pressure and pulse have remained stable. You have not had any further black tarry stool. We feel that you are stable for discharge. I spoke to the general surgeon on-call for Dr. Riley and they feel that we should follow the recommendations of the surgeon who did your endoscopy with regards to when to resume your Eliquis. The surgeon feels that you have no active bleeding and can resume your Eliquis in the next 2 days. However, you are no longer allowed to take anything that is a nonsteroidal. So you cannot take aspirin, Aleve, Naprosyn, naproxen, meloxicam, ibuprofen, etc. ever again. Instructions for discharge: Please see your primary care provider in follow-up in the next 1 to 2 weeks. She will need to make sure that your anemia is stable. She may want to draw your blood work to check for the anemia. The surgeon recommends that you take a medicine to reduce the acid in your stomach for the next 6 weeks. I have prescribed omeprazole 40 mg twice a day for the next 30 days. I will leave it to SOFIA Gunderson to see if she will decide about when to stop the omeprazole or if she is going to ask general surgery. The surgeon feels that you can start the Eliquis in the next 2 to 3 days. Your granddaughter was on the phone when I spoke to you about discharge instructions. She lets us know that you are having some problems with memory loss. You and your family are working through that. I would recommend that you get these things in order + DURABLE [employer] to decide who will speak for you when you can no longer speak for yourself because you are unconscious or unable to speak + POLST form to let us know if you want everything done to resuscitate you. We really do not recommend resuscitation if you do not have a pulse or pressure. If your heart is stopped and you no longer a breathing the recovery from that is slim to none. And if we do bring you back, it will not be a good life. However if there are certain things you do want done such as surgery, antibiotics, transfusions, dialysis, tube feedings, please discuss those with your family and put that on the POLST form. + A general question we ask has to do with your care when you can no longer take care of yourself. Will you be staying at home and paying for caregivers? Will you need to go to a group home to get caregiving? Or would you move in with one of your children and they will take care of you? We noticed that you have a yeast infection of some of your skin folds. I have prescribed an antifungal to put on the affected area twice a day for the next week. Print Language: Hungarian Patient Instructions: Apixaban oral tablets, Duodenitis Follow-up Care: Jan Riley MD [Physician No Access] - Anusha Gunderson PA-C [Primary Care Provider] -"
[2024-07-07 18:19] VITALS: BP 127/56; TEMP 98.1
[2024-07-07 18:40] LABS: CHOL/HDL RATIO 2.3 (<4.4); CHOLESTEROL 143 mg/dL; HDL CHOLESTEROL 63 mg/dL; LDL CHOLESTEROL,CALCULATED 54 mg/dL; LDL/HDL RATIO 0.9 (<4.4); TRIGLYCERIDES 128 mg/dL; VLDL CHOLESTEROL 26 mg/dL
[2024-07-07 18:50] LABS: THYROID STIMULATING HORMONE 3.97 uIU/mL (0.34-5.60)
== END 2024-07-07 18:16 | disposition home or self-care (01) | DRG 379 ==
LOC: ED 14:44 → MS2 23:21
PROVIDERS: ADMIT Internal Medicine; ATTEND Internal Medicine
DX: Z79.899 Other long term (current) drug therapy; L30.4 Erythema intertrigo; R11.2 Nausea with vomiting, unspecified; I48.0 Paroxysmal atrial fibrillation; J45.909 Unspecified asthma, uncomplicated; Z87.891 Personal history of nicotine dependence; I10 Essential (primary) hypertension; B37.2 Candidiasis of skin and nail; K29.81 Duodenitis with bleeding; K92.1 Melena; Z79.01 Long term (current) use of anticoagulants